=== PATIENT | male | born 1955 | race Caucasian/White ===

== ENCOUNTER 2016-12-31 20:12 | Inpatient (IN) | payer OTHER ==
[~2016-12-31] VITALS: Ht 180.3 cm; Wt 121.7 kg
--- NOTE | 2016-12-31 21:00 | REPUSA ---
CT of the head Clinical history: Headache. CVA. Technique: Multiple axial CT images were obtained through the head without administration of contrast . Findings: The ventricles and sulci are symmetric bilaterally. There is no evidence of acute hemorrhag e or infarct. There is no midline shift, mass effect, or extra-axial fluid collection. The osseous st ructures are unremarkable. The visualized paranasal sinuses and mastoid air cells are clear. Impression: Negative study.
[2016-12-31 21:10] LABS: BASO # 0.1 K/mm3 (0.0-0.2); BASO % 0.8 % (0.0-1.0); EOS # 0.2 K/mm3 (0.0-0.50); LARGE UNSTAINED CELL # 0.2 K/mm3 (0.0-0.4); LARGE UNSTAINED CELL % 2.1 % (0.0-4.0); LYMPH # 3.4 K/mm3 (1.5-4.5); LYMPH % 38.2 % (24.0-44.0); MEAN CORPUSCULAR HEMOGLOBIN 30.1 pg (27.0-33.0); MEAN CORPUSCULAR HGB CONC 35.8 g/dl (32.0-36.5); MEAN CORPUSCULAR VOLUME 83.9 fl (80.0-96.0); MONO # 0.5 K/mm3 (0.0-0.8); MONO % 5.3 % (0.0-5.0); NEUTROPHILS # 4.6 K/mm3 (1.8-7.7); NEUTROPHILS % 51.6 % (36.0-66.0); PLATELET COUNT, AUTOMATED 205 k/mm3 (150-450); RED CELL DISTRIBUTION WIDTH 13.6 % (11.5-14.5)
[2016-12-31] MEDS ORDERED: ASPIRIN 81 MG CHEW TABLET As Ordered ONE (21:15)
[2016-12-31 21:30] LABS: ANION GAP 9 MEQ/L (8-16); BLOOD UREA NITROGEN 20 MG/DL (7-18); CALCIUM LEVEL 9.3 MG/DL (8.8-10.2); CARBON DIOXIDE LEVEL 28 MEQ/L (21-32); CHLORIDE LEVEL 103 MEQ/L (98-107); CREATININE FOR GFR 0.99 MG/DL (0.70-1.30); GLOMERULAR FILTRATION RATE > 60.0 (>49); GLUCOSE, FASTING 153 MG/DL (80-110); POTASSIUM SERUM 3.4 MEQ/L (3.5-5.1); SODIUM LEVEL 140 MEQ/L (136-145)
[2016-12-31 21:35] LABS: INR 1.1
[2016-12-31] MEDS ORDERED: LOSA100T36 PO (22:34)
[2016-12-31] MEDS ORDERED: CHLO25TA PO (22:34)
[2016-12-31] MEDS ORDERED: VITMTA PO (22:34)
[2016-12-31] MEDS ORDERED: METF-414 PO (22:34)
[2016-12-31] MEDS ORDERED: ASPI81TA7 PO (22:34)
[2016-12-31] MEDS ORDERED: ACETAMINOPHEN TAB 650MG DOSE (2X325MG) PO PRN (22:45)
[2016-12-31] MEDS ORDERED: ONDANSETRON 4MG/2ML VIAL (J2405) IV PRN (22:45)
[2016-12-31 23:30] VITALS: BP 130/75
[2017-01-01] VITALS (7 sets, daily range): BP systolic 124–138; BP diastolic 78–93; PULSE 78–80
[2017-01-01] MEDS ORDERED: POTASSIUM CHLORIDE 10 MEQ SR TABLET PO ONE (00:30)
[2017-01-01] MEDS ORDERED: DEXTROSE 50% 50 ML SYRINGE IV PRN (01:45)
[2017-01-01] MEDS ORDERED: GLUCOSE 4 GM CHEW TABLET PO PRN (01:45)
[2017-01-01] MEDS ORDERED: GLUCAGON FOR INJ 1 MG VIAL (J1610) SC PRN (01:45)
--- NOTE | 2017-01-01 02:10 | REPUSA ---
CLINICAL HISTORY: CVA. TECHNIQUE: Three dimensional vlho-oz-zkzlox angiography is performed of the [place]. The violetta dy was performed without IV contrast agent. FINDINGS: The supraclinoid portions of the internal carotid arteries are of normal shape. The normal bifurcation is seen. The middle cerebral arteries are unremarkable in appearance. The posterior circu lation is visualized and shows no evidence of occlusion or aneurysm formation. The basilar tip is see n and shows no aneurysm formation. There is no evidence of beading to suggest vasculitis. IMPRESSION: MRA of the [place] is within normal limits. Thank you for your kind referral of this patient.
--- NOTE | 2017-01-01 02:20 | REPUSA ---
CLINICAL HISTORY: Suspected ischemia. TECHNIQUE: MRI of the brain was performed utilizing multiple sequences in axial, coronal and sagittal planes without IV contrast material. COMMENTS: There are 2 foci of restricted diffusion in the left temporal periventricular and subcortical white m atter with the largest measuring 5 mm. The sella and parasellar region are unremarkable in appearance. The corpus callosum and cerebellar tonsils are of normal configuration and position. There are no intra or extra-axial collections. There is no mass effect or midline shift. There is no evidence of hematoma formation. There is no hyd rocephalus. The visualized arterial structures demonstrate normal appearing flow voids. The seventh and eighth nerve bundles are visualized and are unremarkable in appearance. Several foci of T2/FLAIR hyperintensity are noted in the bilateral periventricular and subcortical wh ite matter compatible with mild chronic white matter ischemic changes. Generalized proportionate dilatation of ventricles and sulci is present compatible with age-appropria te parenchymal atrophy. IMPRESSION: 1. Two acute ischemic foci in the left temporal periventricular and subcortical white matter with the largest measuring 5 mm. 2. Generalized age-appropriate parenchymal atrophy. 3. Mild chronic white matter microvascular ischemic changes. Thank you for your kind referral of this patient.
[2017-01-01] MEDS ORDERED: POTASSIUM CHLORIDE 10 MEQ SR TABLET As Ordered ONE (02:22)
--- NOTE | 2017-01-01 05:40 | REPUSA ---
CLINICAL HISTORY: Cerebral ischemia. COMMENTS: Real time sonography with duplex doppler of the carotid arteries bilaterally was performed. Bilateral atheromatous plaques of the common carotid arteries extending to the proximal aspect of the internal and external carotid arteries. Antegrade flow in the vertebral arteries. IMPRESSION: Bilateral less than 50% stenosis of the takeoff of the internal carotid arteries. Thank you for your kind referral of this patient.
[2017-01-01 07:06] LABS: BASO # 0.1 K/mm3 (0.0-0.2); BASO % 0.9 % (0.0-1.0); EOS # 0.2 K/mm3 (0.0-0.50); EOS % 2.5 % (0.0-3.0); LARGE UNSTAINED CELL # 0.2 K/mm3 (0.0-0.4); LARGE UNSTAINED CELL % 1.8 % (0.0-4.0); LYMPH # 3.8 K/mm3 (1.5-4.5); LYMPH % 41.2 % (24.0-44.0); MEAN CORPUSCULAR HEMOGLOBIN 29.8 pg (27.0-33.0); MEAN CORPUSCULAR HGB CONC 34.9 g/dl (32.0-36.5); MEAN CORPUSCULAR VOLUME 85.4 fl (80.0-96.0); MONO # 0.4 K/mm3 (0.0-0.8); MONO % 4.9 % (0.0-5.0); NEUTROPHILS # 4.3 K/mm3 (1.8-7.7); NEUTROPHILS % 48.7 % (36.0-66.0); PLATELET COUNT, AUTOMATED 215 k/mm3 (150-450); RED CELL DISTRIBUTION WIDTH 13.9 % (11.5-14.5); WHITE BLOOD COUNT 8.8 K/mm3 (4.0-10.0)
[2017-01-01 07:21] LABS: ANION GAP 9 MEQ/L (8-16); BLOOD UREA NITROGEN 20 MG/DL (7-18); CALCIUM LEVEL 9.1 MG/DL (8.8-10.2); CARBON DIOXIDE LEVEL 28 MEQ/L (21-32); CHLORIDE LEVEL 105 MEQ/L (98-107); CHOLESTEROL LEVEL 160 MG/DL (<200); CREATININE FOR GFR 0.85 MG/DL (0.70-1.30); GLOMERULAR FILTRATION RATE > 60.0 (>49); GLUCOSE, FASTING 148 MG/DL (80-110); POTASSIUM SERUM 3.5 MEQ/L (3.5-5.1); SODIUM LEVEL 142 MEQ/L (136-145); TRIGLYCERIDES LEVEL 177 MG/DL (<150)
--- NOTE | 2017-01-01 07:51 | REP ---
Clinical: Cerebrovascular accident . Comparison: None . Findings: The mediastinum and cardiac silhouette are stable and within normal limits for portable technique. The lung norman are clear without acute consolidation, effusion, or pneumothorax. Skeletal structures are intact. Impression: Normal portable chest x-ray Signed by Bruno Wong MD 01/01/2017 07:43 A
[2017-01-01] MEDS ORDERED: CHLORTHALIDONE 25 MG TAB PO SCH (09:00)
[2017-01-01] MEDS ORDERED: LOSARTAN 50 MG TAB PO SCH (09:00)
[2017-01-01] MEDS ORDERED: ASPIRIN 325 MG TAB PO SCH (09:00)
--- NOTE | 2017-01-01 09:33 | HPE ---
DATE OF ADMISSION: 12/31/2016 PRIMARY CARE PHYSICIAN: Apryl Mathis MD CHIEF COMPLAINT: Slurring of speech, feeling off balance, and right hand numbness. HISTORY OF PRESENT ILLNESS: This is a 61-year-old male with a past medical history significant for hypertension, ulcers colitis, and oqv-irxixyp-itkeljhxs diabetes mellitus. He presented to the emergency department complaining of slurring of speech when he was at work. 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 It occurred approximately at 6:45 in the afternoon. He was in mid conversation when he noticed that he was slurring his S's and was talking in a different manner. This lasted for approximately 2-3 minutes. He asked a coworker about his speech 5 minutes after the incident, and his coworker said his speech sounded like normal. He drove home from work without any complications. He reports having dizzy spells for the last week. He felt like he was off balance during the day. He also reports symptoms of right hand numbness that had occurred since . These symptoms are resolved at this time. The patient denies any trauma to the head, loss of consciousness. He denies any headaches at this time. He has no changes in swallowing. The patient presented to the emergency department for assessment. Said that he does have a family history of his maternal grandfather having strokes in his mid 50s and 60s. In the emergency department, they started him on 324 mg of aspirin. They have been monitoring his vitals, which has been stable. Initial head CT was unremarkable for acute hemorrhage or infarct. PAST MEDICAL HISTORY: Hypertension, ulcers colitis - currently dormant, vuh-ldtevio-osbchqvym diabetes mellitus - well controlled. PAST SURGICAL HISTORY: Vasectomy. Colonoscopy - last one in November 2016. HOME MEDICATIONS: - metformin 500 mg daily - losartan 100 mg daily - chlorthalidone 25 mg daily - aspirin 81 mg daily - multivitamin ALLERGIES: NO KNOWN DRUG ALLERGIES. SOCIAL HISTORY: Patient lives at home with his and son. He has two cats. Currently smokes approximately 10 cigars a week. Has been doing this for 4-5 years. He quit cigarette smoking 20 years ago. Has an approximately 15 pack-year history of smoking. He is an occasional beer drinker. Denies any recreational drug use. FAMILY HISTORY: Maternal grandfather has a history of strokes in his 50s and 60s. The patient's father has a history of hypertension. REVIEW OF SYSTEMS: Constitutional: No unexplained weight loss, fatigue, fevers, chills. HEENT: No changes in vision, headaches, nasal congestion, or changes in hearing. Cardiovascular: Denies shortness of breath, chest pain, palpitations. Respiratory: Denies cough, shortness of breath, wheezing. Gastrointestinal: Denies any abdominal pain, nausea, vomiting, diarrhea, constipation. Denies hematochezia, melena. Genitourinary (): Denies any dysuria, hematuria. Musculoskeletal: Denies any joint pain or swelling. Integumentary: Denies any skin changes, rashes. Neurological: Admits to feeling off balance, right hand weakness, and slurring of speech, which have all resolved at this time. Denies loss of consciousness, numbness and tingling in the remainder his extremities, limb weakness. Endocrine: Admits to history of diabetes. Denies polydipsia, polyuria, polyphagia. Hematology: Denies abnormal blood loss, bruising. PHYSICAL EXAMINATION: Vital signs: Blood pressure is 118/70, pulse is 84, respirations 16, temperature is 97.6, oxygen saturation is 95% on room air. His weight is 119.75 kg. His height is 180 cm. General: He is lying on the hospital bed comfortable. He is calm and cooperative. He does not appear to be in acute distress. HEENT: His head is normocephalic, atraumatic. His extraocular movements are intact bilaterally. His pupils are equally round and reactive to light and accommodation. He has no facial asymmetry. He raises both eyebrows equally. No slurring of speech is apparent. His tongue is midline. There is no tonsillar erythema or exudates. His mucous membranes are moist. Cardiovascular: Regular rate and rhythm, no murmurs appreciated. Respiratory: His lungs are clear to auscultation bilaterally. No wheezing. Abdomen: Is soft, nontender, obese, nondistended. Normoactive bowel sounds are heard throughout. Extremities: No edema in the bilateral lower extremities. +2 pedal pulses and radial pulse. Musculoskeletal: 5/5 strength throughout. Has good range of motion in all extremities. Neurologic: Cranial nerves II-XII are grossly intact. He has clear speech. +2 reflexes patellar, Achilles. No sensory deficits throughout his body. Normal dkfrkc-ai-bxta, rapid alternating movements, jmpi-qa-[id number]. Skin: No rashes. Skin is warm, dry, pink. Psychiatric: He is alert and oriented to person, place, time and situation. He has normal mood. LABORATORY FINDINGS: Glucose 153, BUN 28, creatinine 0.99, sodium 140, potassium 3.4, chloride 103, carbon dioxide 20, anion gap 9, calcium level 9.3. WBC 9.0, hemoglobin 15.1, hematocrit 42.0, platelet count is 205. His PTT is 27.2. PT is 14.3, INR 1.1. IMAGING STUDIES: A head CT was completed on 12/31/2016. No evidence of acute hemorrhage or infarct. Was noted to be a negative study. ASSESSMENT AND PLAN: This is a 61-year-old male with stroke symptoms. We will be admitting the patient for further evaluation and stabilization. At this time, his symptoms have resolved. 1. Acute left temporal CVA: Pt will be admitted for CVA workup including an echocardiogram and carotid dopplers to rule out carotid stenosis, hypercoagulable state workup, and vasculitis labs will be added. For now, his asa will be changed from 81mg to 325 mg daily, Plavix 75mg daily, and neurologist, Dr. Vera, has been consulted for further recommendations. Start on statins, and consult physical therapist , tobacco cessation counseling as he still uses cigars, with prior history of smoking. neurochecks q4hrs. monitor for new neurological symptoms. 2. DM2. consistent carbohydrates diet, check A1c, and sliding scale for now. 3. Hypokalemia, supplement with kdur orally. 4. HTN. continue on diuretic and losartan, and monitor creatinine and renal function. 5. Active Tobacco use, quit cigarette smoking, but currently still using 10 cigars daily. tobacco cessation counseling. 6. Ulcerative colitis, stable. no acute symptoms DVT prophylaxis.on aspirin and plavix. compression stockings. My preceptor for this patient encounter was Sunshine Diaz MD. The preceptor was physically present in the building during the encounter and was fully available. As needed, all aspects of the patient interview, examination, medical decision making process, and medical care plan development were reviewed and approved by the preceptor. The preceptor is aware and concurs with the plan as stated in the body of this note and will attest to such by his/her co-signature. JOSE
[2017-01-01] MEDS ORDERED: HumaLOG INSULIN (NovoLOG) PER UNIT As Ordered ONE (09:52)
[2017-01-01] MEDS: HumaLOG INSULIN (NovoLOG) PER UNIT SC SCH ×4 (10:03→21:00)
--- NOTE | 2017-01-01 10:03 | ECGEPIP ---
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
[2017-01-01] MEDS: ATORVASTATIN 20 MG TAB PO SCH (10:04)
[2017-01-01] MEDS: ENOXAPARIN 40 MG/0.4 ML SYRINGE (J1650) SC SCH (10:06)
--- NOTE | 2017-01-01 13:06 | EDDOCDS ---
Nurse's Notes [facility] Name: Alec Staples Age: 61 yrs Sex: Male : 1955 Arrival Date: 12/31/2016 Time: 20:12 Bed Admit Hold Private MD: Apryl Mathis A Diagnosis: Transient cerebral ischemic attack, unspecified Presentation: 12/31 20:25 Presenting complaint: Patient states: that tonight at work he experienced some slurred ms18 speech. Pt states that over the past few days he has experienced dizzy spells and some numbness in his R hand. Pt has a history of strokes in his family. The last date and time the patient was known to be well was was at 18:30 on December 31, 2016. No acute neurological deficit is noted. Pre-hospital glucose is not applicable to this patient. Adult Sepsis Screening: The patient does not have new or worsening altered mentation. Patient's respiratory rate is less than 22. Systolic blood pressure is greater than 100. Patient has a qSOFA score of 0- Negative Sepsis Screen. Suicide/Homicide risk assessment- the patient denies having any suicidal and/or homicidal ideations and does not present with any other emotional, behavioral or mental health complaints. Status: retired . Transition of care: patient was not received from another setting of care. Red Flag criteria, patient assessed and taken directly to a bed. 20:25 Acuity: TEENA Level 3 ms18 20:25 Method Of Arrival: Walkin/Carried/Asstd ms18 Triage Assessment: 20:31 The onset of the patients symptoms was less than three hours ago. General: Appears in ms18 no apparent distress, comfortable, obese, well nourished, well groomed, Behavior is appropriate for age, cooperative, pleasant. Pain: Denies pain. HIV screening NA for this visit Offered previously. Neurological: Level of Consciousness is awake, alert, obeys commands, Oriented to person, place, time, Reports no additional symptoms. Respiratory: Airway is patent Respiratory effort is even, unlabored. Derm: Skin is pink, warm & dry. normal. Historical: - Allergies: no known allergies; - Home Meds: 1. metformin 500 mg Oral Tb24 4 tabs once daily (Last dose: 12/31/2016 16:30) 2. losartan 100 mg oral tab 1 tab once daily (Last dose: 12/31/2016 08:00) 3. chlorthalidone 25 mg Oral tab 1 tab once daily 4. aspirin 81 mg Oral tab 1 tab once daily 5. Centrum Silver oral tab daily - PMHx: Hypertension; Ulcerative Colitis; Diabetes - NIDDM: controlled; - PSHx: Vasectomy; Colonoscopy; - Social history: Smoking status: Cigars No barriers to communication noted, The patient speaks fluent Macedonian. - : The pt / caregiver states he / she is not on anticoagulants. Home medication list is obtained from the patient. - Exposure Risk Screening:: None identified. Assessment: 21:12 General: Appears in no apparent distress, comfortable, Behavior is appropriate for age, nn1 cooperative. Pain: Denies pain. Neurological: Level of Consciousness is awake, alert, obeys commands, Oriented to person, place, time, Repossession Agent are equal bilaterally Moves all extremities. Speech is normal, Facial symmetry appears normal, Patient reports about 3 minutes of slurred speech earlier in the day, states he felt like his mouth was drooping to the left. No droop noted at this time. Patient states over the last 10 days he has had 1 episode of dizziness and 1 episode of numbness in right hand.. Reports no additional symptoms. Cardiovascular: Capillary refill < 3 seconds Chest pain is denied. Respiratory: Airway is patent Respiratory effort is even, unlabored, Respiratory pattern is regular, symmetrical, Breath sounds are clear bilaterally. Derm: Skin is pink, warm & dry. Musculoskeletal: No deficits noted. 22:20 Reassessment: Patient appears in no apparent distress at this time. Neurological: Level nn1 of Consciousness is awake, alert, obeys commands, Oriented to person, place, time, Repossession Agent are equal bilaterally Moves all extremities. Speech is normal, Facial symmetry appears normal, No changes in neuro status . Derm: Skin is pink, warm & dry. 23:43 General: Appears in no apparent distress, comfortable, Behavior is appropriate for age, nn1 cooperative. General: Report given to hCu Quach RN . Pain: Denies pain. Neurological: Level of Consciousness is awake, alert, obeys commands, Oriented to person, place, time, Repossession Agent are equal bilaterally Moves all extremities. Speech is normal, Facial symmetry appears normal. Respiratory: Airway is patent Respiratory effort is even, unlabored, Respiratory pattern is regular, symmetrical. Derm: Skin is pink, warm & dry. 01/01 07:43 General: monitor is sr with rate of 82. [facility] Vital Signs: 12/31 20:14 BP 159 / 101; Pulse 98; Resp 16; Temp 97.6(O); Pulse Ox 97% on R/A; Weight 119.75 kg lr2 (R); Height 5 ft. 11 in. (180.34 cm); Pain 0/10; 20:21 BP 145 / 87 (auto/); ms18 20:23 Pulse 96 MON; Pulse Ox 96% ; ms18 20:36 BP 137 / 81 (auto/); nn1 20:36 Pulse 86 MON; Pulse Ox 96% ; nn1 20:51 BP 142 / 93 (auto/); nn1 20:51 Pulse 92 MON; Pulse Ox 97% ; nn1 21:00 BP 138 / 88 LA Supine (man/lg); rs6 21:05 Pulse 88 MON; Pulse Ox 96% ; nn1 21:06 BP 122 / 80 (auto/); nn1 21:20 Pulse 92 MON; Pulse Ox 97% ; nn1 21:21 BP 141 / 77 (auto/); nn1 21:35 Pulse 92 MON; Pulse Ox 97% ; nn1 21:36 BP 138 / 75 (auto/); nn1 21:51 BP 125 / 64 (auto/); nn1 21:51 Pulse 88 MON; Pulse Ox 95% ; nn1 22:05 Pulse 86 MON; Pulse Ox 97% ; nn1 22:06 BP 132 / 72 (auto/); nn1 22:20 Pulse 82 MON; Pulse Ox 96% ; nn1 22:21 BP 117 / 69 (auto/); nn1 22:21 Pulse 82 MON; Pulse Ox 95% ; nn1 22:36 BP 122 / 72 (auto/); nn1 22:36 Pulse 82 MON; Pulse Ox 95% ; nn1 22:51 BP 119 / 71 (auto/); nn1 22:51 Pulse 86 MON; Pulse Ox 95% ; nn1 23:06 BP 118 / 70 (auto/); nn1 23:06 Pulse 84 MON; Pulse Ox 95% ; nn1 20:14 Body Mass Index 36.82 (119.75 kg, 180.34 cm) [facility] Vitals: 20:31 Glucose Measurement will do with blood work. Log In Time: December 31, 2016 at 20:12. ms18 ED Course: 20:14 Patient visited by Lisette Stuart. lr2 20:14 Apryl Mathis is Private Physician. lr2 20:14 Patient moved to Waiting lr2 20:19 Jojo Moore,RN is Primary Nurse. lr2 20:19 Patient moved to 11 lr2 20:25 Patient visited by Diana Cooley RN. ms18 20:27 Triage Initiated ms18 20:[address] benjamin 20:43 Pt greeted and oriented to ED. Patient advised of names of staff involved in care, rs6 location of call huizar, wait times and NPO status. Accompanied by Significant Other, Patient has correct armband on for positive identification. Placed in gown. Bed in low position. Call light in reach. Side rails up X 1. groundwater monitoring technician on. Pulse ox on. NIBP on. 20:43 EKG done. (by ED staff). Reviewed by Salbador CESAR. rs6 20:44 Patient visited by Kelsea Colón PCA. rs6 20:56 Salbador Santana FNP is PHCP. ke 20:56 Patient visited by Salbador Santana FNP. ke 20:56 Patient visited by Salbador Santana FNP. ke 21:00 Patient visited by Kelsea Colón PCA. rs6 21:00 Patient moved to 11 rs6 21:08 CT Head Without Contrast Returned. EDMS 21:14 Patient visited by Salbador Santana FNP. ke 21:14 Inserted saline lock: 20 gauge in left and blood collected. The patient tolerated the nn1 procedure well. left wrist 20g. 21:44 Patient visited by Salbador Santana FNP. ke 22:18 Patient visited by Salbador Santana FNP. ke 22:32 Sunshine Diaz is Hospitalizing Provider. ke 23:20 Patient moved to 20 sls1 23:26 Patient moved to Admit Hold sls1 01/01 00:54 [facility] Payment Agreement was scanned into [employer] and attached to record. hs2 01:50 Primary Nurse role handed off by Jojo Moore,NIURKA rs6 02:20 MRA BRAIN W/O CONTRAST Returned. EDMS 02:57 MRI Brain without Contrast Returned. EDMS 03:13 Patient moved to Ultrasound en 03:54 Patient moved to 20 en 06:05 Duplex,carotid (complete) Returned. EDMS 06:52 Patient moved to Admit Hold sls1 08:03 Chest, 1 View Returned. EDMS 10:06 ELECTROCARDIOGRAM ADULT Returned. EDMS Administered Medications: 12/31 21:24 Drug: Aspirin 324 mg [aspirin 81 mg chewable tablet (4 tabs)] Route: PO; nn1 Point of Care Testing: Blood Glucose: 21:15 Blood Glucose: 170 mg/dL; nn1 Ranges: Order Results: Lab Order: Basic Metabolic Profile; SPEC'M 12/31/16 21:01 Test: GLUCOSE, FASTING; Value: 153; Range: 80-110; Abnormal: Above high normal; Units: MG/DL; Status: F Test: BLOOD UREA NITROGEN; Value: 20; Range: 7-18; Abnormal: Above high normal; Units: MG/DL; Status: F Test: CREATININE FOR GFR; Value: 0.99; Range: 0.70-1.30; Units: MG/DL; Status: F Test: GLOMERULAR FILTRATION RATE; Value: > 60.0; Range: >49; Status: F Test: SODIUM LEVEL; Value: 140; Range: 136-145; Units: MEQ/L; Status: F Test: POTASSIUM SERUM; Value: 3.4; Range: 3.5-5.1; Abnormal: Below low normal; Units: MEQ/L; Status: F Test: CHLORIDE LEVEL; Value: 103; Range: 98-107; Units: MEQ/L; Status: F Test: CARBON DIOXIDE LEVEL; Value: 28; Range: 21-32; Units: MEQ/L; Status: F Test: ANION GAP; Value: 9; Range: 8-16; Units: MEQ/L; Status: F Test: CALCIUM LEVEL; Value: 9.3; Range: 8.8-10.2; Units: MG/DL; Status: F Test Note: ; Units are mL/min/1.73 m2 Chronic Kidney Disease Staging per NKF: Stage I & II GFR >=60 Normal to Mildly Decreased Stage III GFR 30-59 Moderately Decreased Stage IV GFR 15-29 Severely Decreased Stage V GFR <15 Very Little GFR Left ESRD GFR <15 on WEATHERIZATION COORDINATOR Lab Order: CBC with Diff; SPEC'M 12/31/16 21:01 Test: WHITE BLOOD COUNT; Value: 9.0; Range: 4.0-10.0; Units: K/mm3; Status: F Test: RED BLOOD COUNT; Value: 5.01; Range: 4.30-6.10; Units: M/mm3; Status: F Test: HEMOGLOBIN; Value: 15.1; Range: 14.0-18.0; Units: g/dl; Status: F Test: HEMATOCRIT; Value: 42.0; Range: 42.0-52.0; Units: %; Status: F Test: MEAN CORPUSCULAR VOLUME; Value: 83.9; Range: 80.0-96.0; Units: fl; Status: F Test: MEAN CORPUSCULAR HEMOGLOBIN; Value: 30.1; Range: 27.0-33.0; Units: pg; Status: F Test: MEAN CORPUSCULAR HGB CONC; Value: 35.8; Range: 32.0-36.5; Units: g/dl; Status: F Test: RED CELL DISTRIBUTION WIDTH; Value: 13.6; Range: 11.5-14.5; Units: %; Status: F Test: PLATELET COUNT, AUTOMATED; Value: 205; Range: 150-450; Units: k/mm3; Status: F Test: NEUTROPHILS %; Value: 51.6; Range: 36.0-66.0; Units: %; Status: F Test: LYMPH %; Value: 38.2; Range: 24.0-44.0; Units: %; Status: F Test: MONO %; Value: 5.3; Range: 0.0-5.0; Abnormal: Above high normal; Units: %; Status: F Test: EOS %; Value: 2.0; Range: 0.0-3.0; Units: %; Status: F Test: BASO %; Value: 0.8; Range: 0.0-1.0; Units: %; Status: F Test: LARGE UNSTAINED CELL %; Value: 2.1; Range: 0.0-4.0; Units: %; Status: F Test: NEUTROPHILS #; Value: 4.6; Range: 1.8-7.7; Units: K/mm3; Status: F Test: LYMPH #; Value: 3.4; Range: 1.5-4.5; Units: K/mm3; Status: F Test: MONO #; Value: 0.5; Range: 0.0-0.8; Units: K/mm3; Status: F Test: EOS #; Value: 0.2; Range: 0.0-0.50; Units: K/mm3; Status: F Test: BASO #; Value: 0.1; Range: 0.0-0.2; Units: K/mm3; Status: F Test: LARGE UNSTAINED CELL #; Value: 0.2; Range: 0.0-0.4; Units: K/mm3; Status: F Lab Order: Partial Thromboplastin Time; 12/31/16 21:01 Test: PARTIAL THROMBOPLASTIN TIME; Value: 27.2; Range: 26.6-37.1; Units: SECONDS; Status: F Lab Order: Prothrombin Time Profile\E\INR; 12/31/16 21:01 Test: PROTHROMBIN TIME; Value: 14.3; Range: 12.3-14.5; Units: SECONDS; Status: F Test: INR; Value: 1.10; Status: F Test Note: ; THERAPUTIC HUMAN INR VALUES INDICATIONS NORMAL RANGES PROPHYLAXIS/TREATMENT OF: VENOUS THROMBOSIS 2.0-3.0 PULMONARY EMBOLISM 2.0-3.0 PREVENTION OF SYSTEMIC EMBOLISM FROM: TISSUE HEART VALVES 2.0-3.0 ACUTE MYOCARDIAL INFARCTION 2.0-3.0 VALVULAR HEART DISEASE 2.0-3.0 ATRIAL FIBRILLATION 2.0-3.0 MECHANICAL VALVES(HIGH RISK) 2.5-3.5 RECURRENT MYOCARDIAL INFARCTION 2.5-3.5 Lab Order: Type & Screen; 12/31/16 21:01 Test: BLOOD TYPE; Value: O POS; Status: F Test: AB SCREEN (INDIRECT HUSAM)VIS; Value: NEGATIVE; Status: F Lab Order: Fingerstick Blood Sugar; 12/31/16 20:53 Test: BEDSIDE GLUCOSE; Value: 170; Range: 80-115; Abnormal: Above high normal; Units: MG/DL; Status: F Test Note: ; RN Notified Doctor Notified Lab Order: CARDIAC RISK PROFILE; 01/01/17 06:31 Test: TRIGLYCERIDES LEVEL; Value: 177; Range: <150; Abnormal: Above high normal; Units: MG/DL; Status: F Test: CHOLESTEROL LEVEL; Value: 160; Range: <200; Units: MG/DL; Status: F Test: HDL CHOLESTEROL; Value: 31; Range: >40; Abnormal: Below low normal; Units: MG/DL; Status: F Test: LDL CHOLESTEROL; Value: 93.6; Range: <100; Units: MG/DL; Status: F Test: NON-HDL-C; Value: 129; Units: MG/DL; Status: F Test: CHOLESTEROL RISK RATIO; Value: 5.161; Range: <5; Abnormal: Above high normal; Status: F Lab Order: CBC WITH DIFFERENTIAL; 01/01/17 06:44 Test: WHITE BLOOD COUNT; Value: 8.8; Range: 4.0-10.0; Units: K/mm3; Status: F Test: RED BLOOD COUNT; Value: 4.84; Range: 4.30-6.10; Units: M/mm3; Status: F Test: HEMOGLOBIN; Value: 14.4; Range: 14.0-18.0; Units: g/dl; Status: F Test: HEMATOCRIT; Value: 41.3; Range: 42.0-52.0; Abnormal: Below low normal; Units: %; Status: F Test: MEAN CORPUSCULAR VOLUME; Value: 85.4; Range: 80.0-96.0; Units: fl; Status: F Test: MEAN CORPUSCULAR HEMOGLOBIN; Value: 29.8; Range: 27.0-33.0; Units: pg; Status: F Test: MEAN CORPUSCULAR HGB CONC; Value: 34.9; Range: 32.0-36.5; Units: g/dl; Status: F Test: RED CELL DISTRIBUTION WIDTH; Value: 13.9; Range: 11.5-14.5; Units: %; Status: F Test: PLATELET COUNT, AUTOMATED; Value: 215; Range: 150-450; Units: k/mm3; Status: F Test: NEUTROPHILS %; Value: 48.7; Range: 36.0-66.0; Units: %; Status: F Test: LYMPH %; Value: 41.2; Range: 24.0-44.0; Units: %; Status: F Test: MONO %; Value: 4.9; Range: 0.0-5.0; Units: %; Status: F Test: EOS %; Value: 2.5; Range: 0.0-3.0; Units: %; Status: F Test: BASO %; Value: 0.9; Range: 0.0-1.0; Units: %; Status: F Test: LARGE UNSTAINED CELL %; Value: 1.8; Range: 0.0-4.0; Units: %; Status: F Test: NEUTROPHILS #; Value: 4.3; Range: 1.8-7.7; Units: K/mm3; Status: F Test: LYMPH #; Value: 3.8; Range: 1.5-4.5; Units: K/mm3; Status: F Test: MONO #; Value: 0.4; Range: 0.0-0.8; Units: K/mm3; Status: F Test: EOS #; Value: 0.2; Range: 0.0-0.50; Units: K/mm3; Status: F Test: BASO #; Value: 0.1; Range: 0.0-0.2; Units: K/mm3; Status: F Test: LARGE UNSTAINED CELL #; Value: 0.2; Range: 0.0-0.4; Units: K/mm3; Status: F Lab Order: BASIC METABOLIC PROFILE; [facility]' 01/01/17 06:31 Test: GLUCOSE, FASTING; Value: 148; Range: 80-110; Abnormal: Above high normal; Units: MG/DL; Status: F Test: BLOOD UREA NITROGEN; Value: 20; Range: 7-18; Abnormal: Above high normal; Units: MG/DL; Status: F Test: CREATININE FOR GFR; Value: 0.85; Range: 0.70-1.30; Units: MG/DL; Status: F Test: GLOMERULAR FILTRATION RATE; Value: > 60.0; Range: >49; Status: F Test: SODIUM LEVEL; Value: 142; Range: 136-145; Units: MEQ/L; Status: F Test: POTASSIUM SERUM; Value: 3.5; Range: 3.5-5.1; Units: MEQ/L; Status: F Test: CHLORIDE LEVEL; Value: 105; Range: 98-107; Units: MEQ/L; Status: F Test: CARBON DIOXIDE LEVEL; Value: 28; Range: 21-32; Units: MEQ/L; Status: F Test: ANION GAP; Value: 9; Range: 8-16; Units: MEQ/L; Status: F Test: CALCIUM LEVEL; Value: 9.1; Range: 8.8-10.2; Units: MG/DL; Status: F Test Note: ; Units are mL/min/1.73 m2 Chronic Kidney Disease Staging per NKF: Stage I & II GFR >=60 Normal to Mildly Decreased Stage III GFR 30-59 Moderately Decreased Stage IV GFR 15-29 Severely Decreased Stage V GFR <15 Very Little GFR Left ESRD GFR <15 on WEATHERIZATION COORDINATOR Lab Order: THYROID STIMULATING HORMONE; SPEC'M 01/01/17 06:31 Test: THYROID STIMULATING HORMONE; Value: 2.050; Range: 0.358-3.740; Units: uIU/ML; Status: F Radiology Order: CT Head Without Contrast Test: CT Head Without Contrast REASON FOR EXAMINATION: CVA <4.5hrs; ; CT of the head; Clinical history: Headache. CVA.; Technique: Multiple axial CT images were obtained through the head without administration of contrast; .; Findings: The ventricles and sulci are symmetric bilaterally. There is no evidence of acute hemorrhag; e or infarct. There is no midline shift, mass effect, or extra-axial fluid collection. The osseous st; ructures are unremarkable. The visualized paranasal sinuses and mastoid air cells are clear.; Impression: Negative study.; ; Radiology Order: Chest, 1 View Test: Chest, 1 View REASON FOR EXAMINATION: CVA <4.5hrs; Clinical: Cerebrovascular accident .; ; Comparison: None .; ; Findings:; The mediastinum and cardiac silhouette are stable and within normal limits for; portable technique. The lung norman are clear without acute consolidation,; effusion, or pneumothorax. 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: rs; : 1955 Requested By: SINCERE Simmons; Order Number: [id number] Reading MD: Jaclyn Muniz; Measurements; Intervals [place]; Rate: 83 P: 32; UT: 154 QRS: 26; QRSD: 92 T: 11; QT: 377; QTc: 445; Interpretive Statements; SINUS RHYTHM; NSTTW ABNORMALITY; NO PRIOR FOR COMPARISON; Electronically Signed On 01-01-2017 10:03:21 EST by Jaclyn Muniz; Radiology Order: MRI Brain without Contrast Test: MRI Brain without Contrast REASON FOR EXAMINATION: slurred speech-page w result; ; CLINICAL HISTORY: Suspected ischemia.; TECHNIQUE: MRI of the brain was performed utilizing multiple sequences in axial, coronal and sagittal; planes without IV contrast material.; COMMENTS:; There are 2 foci of restricted diffusion in the left temporal periventricular and subcortical white m; atter with the largest measuring 5 mm.; The sella and parasellar region are unremarkable in appearance.; The corpus callosum and cerebellar tonsils are of normal configuration and position.; There are no intra or extra-axial collections.; There is no mass effect or midline shift. There is no evidence of hematoma formation. There is no hyd; rocephalus.; The visualized arterial structures demonstrate normal appearing flow voids.; The seventh and eighth nerve bundles are visualized and are unremarkable in appearance.; Several foci of T2/FLAIR hyperintensity are noted in the bilateral periventricular and subcortical wh; ite matter compatible with mild chronic white matter ischemic changes.; Generalized proportionate dilatation of ventricles and sulci is present compatible with age-appropria; te parenchymal atrophy.; IMPRESSION:; 1. Two acute ischemic foci in the left temporal periventricular and subcortical white matter with the; largest measuring 5 mm.; 2. Generalized age-appropriate parenchymal atrophy.; 3. Mild chronic white matter microvascular ischemic changes.; Thank you for your kind referral of this patient.; ; ; Radiology Order: MRA BRAIN W/O CONTRAST Test: MRA BRAIN W/O CONTRAST REASON FOR EXAMINATION: slurred speech-page md castañeda result; ; CLINICAL HISTORY: CVA.; TECHNIQUE: Three dimensional [id number] angiography is performed of the [place]. The [place]; dy was performed without IV contrast agent.; FINDINGS: The supraclinoid portions of the internal carotid arteries are of normal shape. The normal; bifurcation is seen. The middle cerebral arteries are unremarkable in appearance. The posterior circu; lation is visualized and shows no evidence of occlusion or aneurysm formation. The basilar tip is see; n and shows no aneurysm formation. There is no evidence of beading to suggest vasculitis.; IMPRESSION:; MRA of the [place] is within normal limits.; Thank you for your kind referral of this patient.; ; Radiology Order: Duplex,carotid (complete) Test: Duplex,carotid (complete) REASON FOR EXAMINATION: CVA; ; CLINICAL HISTORY: Cerebral ischemia.; COMMENTS:; Real time sonography with duplex doppler of the carotid arteries bilaterally was performed.; Bilateral atheromatous plaques of the common carotid arteries extending to the proximal aspect of the; internal and external carotid arteries.; Antegrade flow in the vertebral arteries.; IMPRESSION:; Bilateral less than 50% stenosis of the takeoff of the internal carotid arteries.; Thank you for your kind referral of this patient.; ; Outcome: 22:33 Decision to Hospitalize by Provider. ke 01/01 13:05 Patient left the ED. ttb Signatures: Dispatcher [employer] EDMS Orlando Conway,RN RN Evans Kraft Karl, FLORAL ARTIST FLORAL ARTIST Arabella Morrison RN RN sls1 Gaby Hawkins RN RN ttb Diana Cooley RN RN ms18 Kelsea Colón, LULU CERTIFIED PROSTHETIST rs6 Alma Ba RN RN nn1 Marilia Mendez Hillary, Reg Reg hs2 Lisette Stuart lr2 MTDD
--- NOTE | 2017-01-01 13:06 | EDDOCDS ---
Physician Documentation [facility] Name: Jeff Lazcano Age: 61 yrs Sex: Male : 1955 Arrival Date: 12/31/2016 Time: 20:12 Bed Admit Hold Private MD: Apryl Mathis A Disposition: 12/31/16 22:33 Hospitalization ordered by Sunshine Diaz for Inpatient Admission. Preliminary diagnosis is Transient cerebral ischemic attack, unspecified. - Bed requested for PCU. - Status is Inpatient Admission. ttb - Condition is Stable. - Problem is an ongoing problem. - Symptoms are unchanged. Historical: - Allergies: no known allergies; - Home Meds: 1. metformin 500 mg Oral Tb24 4 tabs once daily (Last dose: 12/31/2016 16:30) 2. losartan 100 mg oral tab 1 tab once daily (Last dose: 12/31/2016 08:00) 3. chlorthalidone 25 mg Oral tab 1 tab once daily 4. aspirin 81 mg Oral tab 1 tab once daily 5. Centrum Silver oral tab daily - PMHx: Hypertension; Ulcerative Colitis; Diabetes - NIDDM: controlled; - PSHx: Vasectomy; Colonoscopy; - Social history: Smoking status: Cigars No barriers to communication noted, The patient speaks fluent Indian. - : The pt / caregiver states he / she is not on anticoagulants. Home medication list is obtained from the patient. - Exposure Risk Screening:: None identified. Vital Signs: 12/31 20:14 BP 159 / 101; Pulse 98; Resp 16; Temp 97.6(O); Pulse Ox 97% on R/A; Weight 119.75 kg / lr2 264 lbs (R); Height 5 ft. 11 in. (180.34 cm); Pain 0/10; 20:21 BP 145 / 87 (auto/); ms18 20:23 Pulse 96 MON; Pulse Ox 96% ; ms18 20:36 BP 137 / 81 (auto/); nn1 20:36 Pulse 86 MON; Pulse Ox 96% ; nn1 20:51 BP 142 / 93 (auto/); nn1 20:51 Pulse 92 MON; Pulse Ox 97% ; nn1 21:00 BP 138 / 88 LA Supine (man/lg); rs6 21:05 Pulse 88 MON; Pulse Ox 96% ; nn1 21:06 BP 122 / 80 (auto/); nn1 21:20 Pulse 92 MON; Pulse Ox 97% ; nn1 21:21 BP 141 / 77 (auto/); nn1 21:35 Pulse 92 MON; Pulse Ox 97% ; nn1 21:36 BP 138 / 75 (auto/); nn1 21:51 BP 125 / 64 (auto/); nn1 21:51 Pulse 88 MON; Pulse Ox 95% ; nn1 22:05 Pulse 86 MON; Pulse Ox 97% ; nn1 22:06 BP 132 / 72 (auto/); nn1 22:20 Pulse 82 MON; Pulse Ox 96% ; nn1 22:21 BP 117 / 69 (auto/); nn1 22:21 Pulse 82 MON; Pulse Ox 95% ; nn1 22:36 BP 122 / 72 (auto/); nn1 22:36 Pulse 82 MON; Pulse Ox 95% ; nn1 22:51 BP 119 / 71 (auto/); nn1 22:51 Pulse 86 MON; Pulse Ox 95% ; nn1 23:06 BP 118 / 70 (auto/); nn1 23:06 Pulse 84 MON; Pulse Ox 95% ; nn1 20:14 Body Mass Index 36.82 (119.75 kg, 180.34 cm) lr2 MDM: 20:30 RN interventions must not delay CT ordered. br1 20:30 Rehabilitation Inspector/Pulse Ox/q 15 min VS ordered. br1 20:30 Accucheck ordered. br1 20:30 IV Saline Lock ordered. br1 20:31 Neuro VS q 15 Minutes ordered. br1 20:31 Rhythm Strip to chart ordered. br1 20:31 Misc. Nursing Order ordered. br1 20:32 Basic Metabolic Profile Ordered. EDMS 20:32 CBC with Diff Ordered. EDMS 20:32 Partial Thromboplastin Time Ordered. EDMS 20:32 Prothrombin Time Profile\E\INR Ordered. EDMS 20:33 Chest, 1 View Ordered. EDMS 20:33 Type & Screen Ordered. EDMS 20:33 CT Head Without Contrast Ordered. EDMS 20:33 ECG WITH READING ER PHYS+CARDIAG ordered. EDMS 21:04 Aspirin 324 mg PO once ordered. ke 21:10 Fingerstick Blood Sugar Ordered. EDMS 22:06 Basic Metabolic Profile Reviewed. ke 22:06 CBC with Diff Reviewed. ke 22:06 Fingerstick Blood Sugar Reviewed. ke 22:06 Partial Thromboplastin Time Reviewed. ke 22:06 Prothrombin Time Profile\E\INR Reviewed. ke 22:06 Type & Screen Reviewed. ke 22:06 CT Head Without Contrast Reviewed. ke 22:20 BED REQUEST+ADM ordered. EDMS 22:42 NO ADDED SALT DIET ordered. EDMS 22:42 CARDIAC RISK PROFILE Ordered. EDMS 22:42 CBC WITH DIFFERENTIAL Ordered. EDMS 22:43 BASIC METABOLIC PROFILE Ordered. EDMS 22:43 THYROID STIMULATING HORMONE Ordered. EDMS 22:43 PHYSICAL THERAPY EVAL & TREAT ordered. EDMS 22:44 Admission / Observation Status ordered. EDMS 23:31 Financial registration complete. hs2 01/01 00:54 [facility] [place] Payment Agreement was scanned into [employer] and attached to record. hs2 01:16 MRI Brain without Contrast Ordered. EDMS 01:23 MRA BRAIN W/O CONTRAST Ordered. EDMS 03:03 ECHOCARD,DOPPLER/COLOR FLOW ordered. EDMS 03:04 Duplex,carotid (complete) Ordered. EDMS 03:06 ANTINUCLEAR ANTIBODIES Ordered. EDMS 03:06 ANTI-CARDIOLIPIN ANTIBODIES Ordered. EDMS 03:06 PROTEIN C ANTIGEN Ordered. EDMS 03:06 ANTI THROMBIN 3 PANEL (AG/AC) Ordered. EDMS 03:06 HOMOCYSTEINE Ordered. EDMS 06:44 FACTOR II PROTHROMBIN GENE AN Ordered. EDMS 06:44 FACTOR V LEIDEN Ordered. EDMS Point of Care Testing: Blood Glucose: 12/31 21:15 Blood Glucose: 170 mg/dL; nn1 Ranges: Administered Medications: 21:24 Drug: Aspirin 324 mg [aspirin 81 mg chewable tablet (4 tabs)] Route: PO; nn1 Signatures: Dispatcher [employer] EDWV Salbador Santana, FIRER GLOST KILN FIRER GLOST KILN Angel Rouse MD MD br1 Gaby Hawkins RN RN ttb Diana Cooley RN RN [id number] Liane Wilkerson RN RN sls2 Bethanie Hurley, Reg Reg hs2 Alma Ba RN nn1 The chart was reviewed and I authenticate all verbal orders and agree with the evaluation and treatment provided.Corrections: (The following items were deleted from the chart) 01/01 01:16 12/31 22:39 MRI Brain W/O FOLL BY WITH ordered. EDMS EDMS 01/01 01:23 12/31 22:39 MRA BRAIN WITH CONTRAST ordered. EDMS EDMS 01/01 06:44 03:06 FACTOR V LEIDEN ordered. EDMS EDMS 03:06 FACTOR II PROTHROMBIN GENE AN ordered. EDMS EDMS Attachments: 00:54 [facility] Payment Agreement hs2 [facility]
[2017-01-02] VITALS (8 sets, daily range): BP systolic 120–156; BP diastolic 83–100
[2017-01-02] MEDS ORDERED: SLF 3 ML SYR IV PRN (03:00)
[2017-01-02] MEDS: SLF 3 ML SYR IV SCH ×3 (06:00→22:00)
--- NOTE | 2017-01-02 07:33 | CR ---
DATE OF CONSULTATION: 01/01/2017 REFERRING PHYSICIAN: Sunshine Diaz MD REASON FOR CONSULTATION: Slurred speech and transient ischemic attack. HISTORY OF PRESENT ILLNESS: Jeff Lazcano is a 61-year-old man with history of hypertension, diabetes who had three episodes in the last 12 days. In one episode he was standing next to a counter and suddenly felt lightheaded. He had two other episodes when his right hand became numb for two minutes. On the day of admission around 06:45 p.m. he was talking to someone and suddenly he started slurring his words and felt that he was talking in a different manner and needed to talk from the left side of his mouth. This lasted for 2-3 minutes and then improved. He denies any headaches. He denies any neck or back pain. He denies any falls, loss of consciousness or head injuries. He has history of obstructive sleep apnea syndrome but does not use a C-PAP. PAST MEDICAL HISTORY: 1. Hypertension. 2. Type 2 diabetes. 3. Vasectomy. 4. Colonoscopy. HOME MEDICATIONS: - metformin 5 mg by mouth daily - losartan 1 mg by mouth daily - chlorthalidone 25 mg by mouth daily - aspirin 81 mg by mouth daily - multivitamin 1 tablet by mouth daily ALLERGIES: NO KNOWN DRUG ALLERGIES. SOCIAL HISTORY: He lives at home with his and son. He smokes 10 cigars per week. He smoked one pack per day of cigarettes for 15 years. He occasionally drinks alcohol. FAMILY HISTORY: Paternal grandfather had a stroke. Father has hypertension. REVIEW OF SYSTEMS: All systems were reviewed and found to be noncontributory except as mentioned in the history present illness. PHYSICAL EXAMINATION: VITAL SIGNS: Temperature 97.5, pulse 86, respiratory rate 18, blood pressure 138/82, 95% saturation on room air. HEART: Regular rate and rhythm. LUNGS: Clear to auscultation. ABDOMEN: Soft, nontender, nondistended. No pedal edema. EAR, NOSE AND THROAT: Examination is within normal limits. NEUROLOGIC EXAMINATION: The patient is awake, alert, oriented to place, person and time. Normal speech, comprehension and repetition. Extraocular muscles are intact. No facial weakness. Tongue, uvula midline. 5/5 strength in all four extremities. Deep tendon flexes are 1+ throughout. He has mildly decreased cold, pinprick, vibration sensation in his feet. Gait is normal. There is no dysmetria. DIAGNOSTIC STUDIES: His MRI scan of brain was reviewed and showed two small left temporal lacunar ischemic strokes. Carotid ultrasound showed less than 50% bilateral carotid artery stenosis. MRA of the brain was within normal limits. His LDL was 93 and total cholesterol was 177 with HDL 31. ASSESSMENT: 1. Two small ischemic lacunar strokes in the left temporal lobe. 2. Less than 50% bilateral carotid artery stenosis. 3. Rule out coagulopathy and vasculopathy. PLAN: 1. Echocardiogram and continue telemonitoring. 2. Blood tests to rule out coagulopathy and vasculopathy. 3. Reduce aspirin to 81 mg by mouth daily and add Plavix 75 mg by mouth daily. After two weeks we may discontinue aspirin and just continue Plavix. 4. Follow with our office in two weeks after hospital discharge. cc: Sunshine Diaz MD
[2017-01-02] MEDS: CLOPIDOGREL 75 MG TAB PO SCH (08:16)
[2017-01-02] MEDS: ASPIRIN 81 MG ENTERIC TAB PO SCH (08:16)
[2017-01-02] MEDS: ATORVASTATIN 20 MG TAB PO SCH (08:16)
[2017-01-02] MEDS: HumaLOG INSULIN (NovoLOG) PER UNIT SC SCH ×4 (08:17→21:45)
[2017-01-02] MEDS: ENOXAPARIN 40 MG/0.4 ML SYRINGE (J1650) SC SCH (08:17)
--- NOTE | 2017-01-02 13:48 | IPNPDOC ---
Subjective Date Seen The patient was seen on 01/02/17. Subjective Chief Complaint/HPI The patient is a 61-year-old male admitted with a reason for visit of Slurred Speech; Tia. General: Denies: Chills, Night Sweats Constitutional: Denies: Chills, Fever Eyes: Denies: Pain, Vision change ENT: Denies: Ear Pain, Head Aches Skin: Denies: Lesions, Rash Pulmonary: Denies: Cough, Dyspnea Cardiovascular: Denies: Chest Pain, Palpitations Gastrointestinal: Denies: Abdominal Pain, Nausea, Vomiting Genitourinary: Denies: Dysuria, Frequency Hematologic: Denies: Bleeding Excessively, Bruising Objective Physical Examination General Exam: Positive: Alert, Cooperative, No Acute Distress Eye Exam: Positive: EOMI, PERRLA ENT Exam: Positive: Atraumatic, Mucous membr. moist/pink Neck Exam: Negative: JVD Chest Exam: Positive: Clear to auscultation, Normal air movement Heart Exam: Positive: Normal S1, Normal S2, Rate Normal Telemetry: Positive: Sinus Abdomen Exam: Positive: Soft, Negative: Tenderness Extremity Exam: Negative: Swelling, Tenderness Neuro Exam: Positive: Cranial Nerves 3-12 NL, Sensation Intact, Strength at 5/ 5 X4 ext Assessment /Plan Plan/VTE VTE Prophylaxis Ordered?: Yes Plan Left temporal CVA: MRI of the Brain results noted MRA and U/S of the Carotids with no acute findings Hypercoagulable workup pending On ASA 81mg prior to event, Plavix 75mg daily added as per neurology team, Dr. Vera Patient advised to continue dual therapy for 2 weeks and then discontinue ASA thereafter Cont Lipitor 2-D echo pending Physical therapy evaluation noted I have extensively discussed the importance of mitigating the patient's risk factors moving forward including cutting down on tobacco use, obesity, hypertension, better control of diabetes We will continue to monitor the patient's progress 2. DM2. Hemoglobin A1c noted to be 7.4% Continue insulin sliding scale 3. HTN. continue on diuretic and losartan 4. Active Tobacco use, Counseled extensively on the need for cessation 6. Ulcerative colitis, stable DVT prophylaxis-Lovenox Disposition-Will await 2-D echo study, anticipate discharge in 24-48 hours. VS, I&O, 24H, Fishbone Vital Signs/I&O Vital Signs Date Time Temp Pulse Resp B/P Pulse Ox O2 Delivery O2 Flow Rate FiO2 01/02/17 12:02 144/90 01/02/17 11:44 97.5 83 20 94 Room Air I&O- Last 24 Hours up to 6 AM 01/02/17 06:00 Intake Total 1440 ml Output Total 1350 ml Balance 90 ml Laboratory Data 24H LABS Laboratory Tests 2 01/01/17 16:33: Bedside Glucose (Misc Panel) 119H 01/01/17 21:25: Bedside Glucose (Misc Panel) 191H 01/02/17 05:36: Estimated Mean Plasma Glucose 166H, Hemoglobin A1c 7.4H 01/02/17 07:37: Bedside Glucose (Misc Panel) 164H 01/02/17 11:37: Bedside Glucose (Misc Panel) 208H BOAZ CAMPOS MD Jan 02, 2017 13:48
[2017-01-02] MEDS: LOSARTAN 50 MG TAB PO SCH (17:35)
[2017-01-03 00:37] VITALS: BP 123/80
[2017-01-03] MEDS: SLF 3 ML SYR IV SCH (06:00)
[2017-01-03 06:25] VITALS: BP 128/89
[2017-01-03 08:00] VITALS: BP 142/92
[2017-01-03] MEDS: ENOXAPARIN 40 MG/0.4 ML SYRINGE (J1650) SC SCH (08:01)
[2017-01-03 08:02] VITALS: BP 134/78
[2017-01-03] MEDS: ASPIRIN 81 MG ENTERIC TAB PO SCH (08:02)
[2017-01-03] MEDS: LOSARTAN 50 MG TAB PO SCH (08:02)
[2017-01-03] MEDS: HumaLOG INSULIN (NovoLOG) PER UNIT SC SCH (08:02)
[2017-01-03] MEDS: ATORVASTATIN 20 MG TAB PO SCH (08:03)
[2017-01-03] MEDS: CLOPIDOGREL 75 MG TAB PO SCH (08:03)
[2017-01-03] MEDS ORDERED: CHLORTHALIDONE 25 MG TAB PO SCH (09:00)
[2017-01-03 09:31] LABS: PROTEIN C ANTIGEN 93 % (60-150)
[2017-01-03] MEDS ORDERED: CLOP75TA2 PO (10:04)
[2017-01-03] MEDS ORDERED: ATOR1TAB21 PO (10:04)
--- NOTE | 2017-01-03 14:06 | EDDOCDS ---
Nurse's Notes [facility] Name: Alec Staples Age: 61 yrs Sex: Male : 1955 Arrival Date: 12/31/2016 Time: 20:12 Bed Admit Hold Private MD: Apryl Mathis A Diagnosis: Transient cerebral ischemic attack, unspecified Presentation: 12/31 20:25 Presenting complaint: Patient states: that tonight at work he experienced some slurred ms18 speech. Pt states that over the past few days he has experienced dizzy spells and some numbness in his R hand. Pt has a history of strokes in his family. The last date and time the patient was known to be well was was at 18:30 on December 31, 2016. No acute neurological deficit is noted. Pre-hospital glucose is not applicable to this patient. Adult Sepsis Screening: The patient does not have new or worsening altered mentation. Patient's respiratory rate is less than 22. Systolic blood pressure is greater than 100. Patient has a qSOFA score of 0- Negative Sepsis Screen. Suicide/Homicide risk assessment- the patient denies having any suicidal and/or homicidal ideations and does not present with any other emotional, behavioral or mental health complaints. Status: retired . Transition of care: patient was not received from another setting of care. Red Flag criteria, patient assessed and taken directly to a bed. 20:25 Acuity: TEENA Level 3 ms18 20:25 Method Of Arrival: Walkin/Carried/Asstd ms18 Triage Assessment: 20:31 The onset of the patients symptoms was less than three hours ago. General: Appears in ms18 no apparent distress, comfortable, obese, well nourished, well groomed, Behavior is appropriate for age, cooperative, pleasant. Pain: Denies pain. HIV screening NA for this visit Offered previously. Neurological: Level of Consciousness is awake, alert, obeys commands, Oriented to person, place, time, Reports no additional symptoms. Respiratory: Airway is patent Respiratory effort is even, unlabored. Derm: Skin is pink, warm & dry. normal. Historical: - Allergies: no known allergies; - Home Meds: 1. metformin 500 mg Oral Tb24 4 tabs once daily (Last dose: 12/31/2016 16:30) 2. losartan 100 mg oral tab 1 tab once daily (Last dose: 12/31/2016 08:00) 3. chlorthalidone 25 mg Oral tab 1 tab once daily 4. aspirin 81 mg Oral tab 1 tab once daily 5. Centrum Silver oral tab daily - PMHx: Hypertension; Ulcerative Colitis; Diabetes - NIDDM: controlled; - PSHx: Vasectomy; Colonoscopy; - Social history: Smoking status: Cigars No barriers to communication noted, The patient speaks fluent Indonesian. - : The pt / caregiver states he / she is not on anticoagulants. Home medication list is obtained from the patient. - Exposure Risk Screening:: None identified. Assessment: 21:12 General: Appears in no apparent distress, comfortable, Behavior is appropriate for age, nn1 cooperative. Pain: Denies pain. 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 Speech is normal, Facial symmetry appears normal, Patient reports about 3 minutes of slurred speech earlier in the day, states he felt like his mouth was drooping to the left. No droop noted at this time. Patient states over the last 10 days he has had 1 episode of dizziness and 1 episode of numbness in right hand.. Reports no additional symptoms. Cardiovascular: Capillary refill < 3 seconds Chest pain is denied. Respiratory: Airway is patent Respiratory effort is even, unlabored, Respiratory pattern is regular, symmetrical, Breath sounds are clear bilaterally. Derm: Skin is pink, warm & dry. Musculoskeletal: No deficits noted. 22:20 Reassessment: Patient appears in no apparent distress at this time. Neurological: Level nn1 of Consciousness is awake, alert, obeys commands, Oriented to person, place, time, Tree Worker are equal bilaterally Moves all extremities. Speech is normal, Facial symmetry appears normal, No changes in neuro status . Derm: Skin is pink, warm & dry. 23:43 General: Appears in no apparent distress, comfortable, Behavior is appropriate for age, nn1 cooperative. General: Report given to Chu Quach RN . Pain: Denies pain. 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 Speech is normal, Facial symmetry appears normal. Respiratory: Airway is patent Respiratory effort is even, unlabored, Respiratory pattern is regular, symmetrical. Derm: Skin is pink, warm & dry. 01/01 07:43 General: monitor is sr with rate of 82. [facility] Vital Signs: 12/31 20:14 BP 159 / 101; Pulse 98; Resp 16; Temp 97.6(O); Pulse Ox 97% on R/A; Weight 119.75 kg lr2 (R); Height 5 ft. 11 in. (180.34 cm); Pain 0/10; 20:21 BP 145 / 87 (auto/); ms18 20:23 Pulse 96 MON; Pulse Ox 96% ; ms18 20:36 BP 137 / 81 (auto/); nn1 20:36 Pulse 86 MON; Pulse Ox 96% ; nn1 20:51 BP 142 / 93 (auto/); nn1 20:51 Pulse 92 MON; Pulse Ox 97% ; nn1 21:00 BP 138 / 88 LA Supine (man/lg); rs6 21:05 Pulse 88 MON; Pulse Ox 96% ; nn1 21:06 BP 122 / 80 (auto/); nn1 21:20 Pulse 92 MON; Pulse Ox 97% ; nn1 21:21 BP 141 / 77 (auto/); nn1 21:35 Pulse 92 MON; Pulse Ox 97% ; nn1 21:36 BP 138 / 75 (auto/); nn1 21:51 BP 125 / 64 (auto/); nn1 21:51 Pulse 88 MON; Pulse Ox 95% ; nn1 22:05 Pulse 86 MON; Pulse Ox 97% ; nn1 22:06 BP 132 / 72 (auto/); nn1 22:20 Pulse 82 MON; Pulse Ox 96% ; nn1 22:21 BP 117 / 69 (auto/); nn1 22:21 Pulse 82 MON; Pulse Ox 95% ; nn1 22:36 BP 122 / 72 (auto/); nn1 22:36 Pulse 82 MON; Pulse Ox 95% ; nn1 22:51 BP 119 / 71 (auto/); nn1 22:51 Pulse 86 MON; Pulse Ox 95% ; nn1 23:06 BP 118 / 70 (auto/); nn1 23:06 Pulse 84 MON; Pulse Ox 95% ; nn1 20:14 Body Mass Index 36.82 (119.75 kg, 180.34 cm) [facility] Vitals: 20:31 Glucose Measurement will do with blood work. Log In Time: December 31, 2016 at 20:12. ms18 ED Course: 20:14 Patient visited by Lisette Stuart. lr2 20:14 Apryl Mathis is Private Physician. lr2 20:14 Patient moved to Waiting lr2 20:19 Jojo Moore,RN is Primary Nurse. lr2 20:19 Patient moved to 11 lr2 20:25 Patient visited by Diana Cooley RN. ms18 20:27 Triage Initiated ms18 20:[address] benjamin 20:43 Pt greeted and oriented to ED. Patient advised of names of staff involved in care, rs6 location of call huizar, wait times and NPO status. Accompanied by Significant Other, Patient has correct armband on for positive identification. Placed in gown. Bed in low position. Call light in reach. Side rails up X 1. youth nutritional monitor on. Pulse ox on. NIBP on. 20:43 EKG done. (by ED staff). Reviewed by Salbador CESAR. rs6 20:44 Patient visited by Kelsea Colón PCA. rs6 20:56 Salbador Santana FNP is PHCP. ke 20:56 Patient visited by Salbador Santana FNP. ke 20:56 Patient visited by Salbador Santana FNP. ke 21:00 Patient visited by Kelsea Colón PCA. rs6 21:00 Patient moved to 11 rs6 21:08 CT Head Without Contrast Returned. EDMS 21:14 Patient visited by Salbador Santana FNP. ke 21:14 Inserted saline lock: 20 gauge in left and blood collected. The patient tolerated the nn1 procedure well. left wrist 20g. 21:44 Patient visited by Salbador Santana FNP. ke 22:18 Patient visited by Salbador Santana FNP. ke 22:32 Sunshine Diaz is Hospitalizing Provider. ke 23:20 Patient moved to 20 sls1 23:26 Patient moved to Admit Hold sls1 01/01 00:54 [facility] Payment Agreement was scanned into Instant [employer] and attached to record. hs2 01:50 Primary Nurse role handed off by Jojo Moore,NIURKA rs6 02:20 MRA BRAIN W/O CONTRAST Returned. EDMS 02:57 MRI Brain without Contrast Returned. EDMS 03:13 Patient moved to Ultrasound en 03:54 Patient moved to 20 en 06:05 Duplex,carotid (complete) Returned. EDMS 06:52 Patient moved to Admit Hold sls1 08:03 Chest, 1 View Returned. EDMS 10:06 ELECTROCARDIOGRAM ADULT Returned. EDMS 01/03 08:18 T-Sheet-- Draft Copy was scanned into [employer] and attached to record. lg 08:18 ECG/EKG was scanned into [employer] and attached to record. lg 08:19 Trend VS was scanned into [employer] and attached to record. lg 08:19 Radiology Report was scanned into [employer] and attached to record. lg Administered Medications: 12/31 21:24 Drug: Aspirin 324 mg [aspirin 81 mg chewable tablet (4 tabs)] Route: PO; nn1 Attachments: 08:19 Trend VS lg Point of Care Testing: Blood Glucose: 12/31 21:15 Blood Glucose: 170 mg/dL; nn1 Ranges: Order Results: Lab Order: Basic Metabolic Profile; SPEC'M 12/31/16 21:01 Test: GLUCOSE, FASTING; Value: 153; Range: 80-110; Abnormal: Above high normal; Units: MG/DL; Status: F Test: BLOOD UREA NITROGEN; Value: 20; Range: 7-18; Abnormal: Above high normal; Units: MG/DL; Status: F Test: CREATININE FOR GFR; Value: 0.99; Range: 0.70-1.30; Units: MG/DL; Status: F Test: GLOMERULAR FILTRATION RATE; Value: > 60.0; Range: >49; Status: F Test: SODIUM LEVEL; Value: 140; Range: 136-145; Units: MEQ/L; Status: F Test: POTASSIUM SERUM; Value: 3.4; Range: 3.5-5.1; Abnormal: Below low normal; Units: MEQ/L; Status: F Test: CHLORIDE LEVEL; Value: 103; Range: 98-107; Units: MEQ/L; Status: F Test: CARBON DIOXIDE LEVEL; Value: 28; Range: 21-32; Units: MEQ/L; Status: F Test: ANION GAP; Value: 9; Range: 8-16; Units: MEQ/L; Status: F Test: CALCIUM LEVEL; Value: 9.3; Range: 8.8-10.2; Units: MG/DL; Status: F Test Note: ; Units are mL/min/1.73 m2 Chronic Kidney Disease Staging per NKF: Stage I & II GFR >=60 Normal to Mildly Decreased Stage III GFR 30-59 Moderately Decreased Stage IV GFR 15-29 Severely Decreased Stage V GFR <15 Very Little GFR Left ESRD GFR <15 on ALLERGIST/MD Lab Order: CBC with Diff; SPEC'M 12/31/16 21:01 Test: WHITE BLOOD COUNT; Value: 9.0; Range: 4.0-10.0; Units: K/mm3; Status: F Test: RED BLOOD COUNT; Value: 5.01; Range: 4.30-6.10; Units: M/mm3; Status: F Test: HEMOGLOBIN; Value: 15.1; Range: 14.0-18.0; Units: g/dl; Status: F Test: HEMATOCRIT; Value: 42.0; Range: 42.0-52.0; Units: %; Status: F Test: MEAN CORPUSCULAR VOLUME; Value: 83.9; Range: 80.0-96.0; Units: fl; Status: F Test: MEAN CORPUSCULAR HEMOGLOBIN; Value: 30.1; Range: 27.0-33.0; Units: pg; Status: F Test: MEAN CORPUSCULAR HGB CONC; Value: 35.8; Range: 32.0-36.5; Units: g/dl; Status: F Test: RED CELL DISTRIBUTION WIDTH; Value: 13.6; Range: 11.5-14.5; Units: %; Status: F Test: PLATELET COUNT, AUTOMATED; Value: 205; Range: 150-450; Units: k/mm3; Status: F Test: NEUTROPHILS %; Value: 51.6; Range: 36.0-66.0; Units: %; Status: F Test: LYMPH %; Value: 38.2; Range: 24.0-44.0; Units: %; Status: F Test: MONO %; Value: 5.3; Range: 0.0-5.0; Abnormal: Above high normal; Units: %; Status: F Test: EOS %; Value: 2.0; Range: 0.0-3.0; Units: %; Status: F Test: BASO %; Value: 0.8; Range: 0.0-1.0; Units: %; Status: F Test: LARGE UNSTAINED CELL %; Value: 2.1; Range: 0.0-4.0; Units: %; Status: F Test: NEUTROPHILS #; Value: 4.6; Range: 1.8-7.7; Units: K/mm3; Status: F Test: LYMPH #; Value: 3.4; Range: 1.5-4.5; Units: K/mm3; Status: F Test: MONO #; Value: 0.5; Range: 0.0-0.8; Units: K/mm3; Status: F Test: EOS #; Value: 0.2; Range: 0.0-0.50; Units: K/mm3; Status: F Test: BASO #; Value: 0.1; Range: 0.0-0.2; Units: K/mm3; Status: F Test: LARGE UNSTAINED CELL #; Value: 0.2; Range: 0.0-0.4; Units: K/mm3; Status: F Lab Order: Partial Thromboplastin Time; [facility] 12/31/16 21:01 Test: PARTIAL THROMBOPLASTIN TIME; Value: 27.2; Range: 26.6-37.1; Units: SECONDS; Status: F Lab Order: Prothrombin Time Profile\E\INR; [facility] 12/31/16 21:01 Test: PROTHROMBIN TIME; Value: 14.3; Range: 12.3-14.5; Units: SECONDS; Status: F Test: INR; Value: 1.10; Status: F Test Note: ; THERAPUTIC HUMAN INR VALUES INDICATIONS NORMAL RANGES PROPHYLAXIS/TREATMENT OF: VENOUS THROMBOSIS 2.0-3.0 PULMONARY EMBOLISM 2.0-3.0 PREVENTION OF SYSTEMIC EMBOLISM FROM: TISSUE HEART VALVES 2.0-3.0 ACUTE MYOCARDIAL INFARCTION 2.0-3.0 VALVULAR HEART DISEASE 2.0-3.0 ATRIAL FIBRILLATION 2.0-3.0 MECHANICAL VALVES(HIGH RISK) 2.5-3.5 RECURRENT MYOCARDIAL INFARCTION 2.5-3.5 Lab Order: Type & Screen; 12/31/16 21:01 Test: BLOOD TYPE; Value: O POS; Status: F Test: AB SCREEN (INDIRECT HUSAM)VIS; Value: NEGATIVE; Status: F Lab Order: Fingerstick Blood Sugar; [facility]' 12/31/16 20:53 Test: BEDSIDE GLUCOSE; Value: 170; Range: 80-115; Abnormal: Above high normal; Units: MG/DL; Status: F Test Note: ; RN Notified Doctor Notified Lab Order: CARDIAC RISK PROFILE; [facility] 01/01/17 06:31 Test: TRIGLYCERIDES LEVEL; Value: 177; Range: <150; Abnormal: Above high normal; Units: MG/DL; Status: F Test: CHOLESTEROL LEVEL; Value: 160; Range: <200; Units: MG/DL; Status: F Test: HDL CHOLESTEROL; Value: 31; Range: >40; Abnormal: Below low normal; Units: MG/DL; Status: F Test: LDL CHOLESTEROL; Value: 93.6; Range: <100; Units: MG/DL; Status: F Test: NON-HDL-C; Value: 129; Units: MG/DL; Status: F Test: CHOLESTEROL RISK RATIO; Value: 5.161; Range: <5; Abnormal: Above high normal; Status: F Lab Order: CBC WITH DIFFERENTIAL; [facility] 01/01/17 06:44 Test: WHITE BLOOD COUNT; Value: 8.8; Range: 4.0-10.0; Units: K/mm3; Status: F Test: RED BLOOD COUNT; Value: 4.84; Range: 4.30-6.10; Units: M/mm3; Status: F Test: HEMOGLOBIN; Value: 14.4; Range: 14.0-18.0; Units: g/dl; Status: F Test: HEMATOCRIT; Value: 41.3; Range: 42.0-52.0; Abnormal: Below low normal; Units: %; Status: F Test: MEAN CORPUSCULAR VOLUME; Value: 85.4; Range: 80.0-96.0; Units: fl; Status: F Test: MEAN CORPUSCULAR HEMOGLOBIN; Value: 29.8; Range: 27.0-33.0; Units: pg; Status: F Test: MEAN CORPUSCULAR HGB CONC; Value: 34.9; Range: 32.0-36.5; Units: g/dl; Status: F Test: RED CELL DISTRIBUTION WIDTH; Value: 13.9; Range: 11.5-14.5; Units: %; Status: F Test: PLATELET COUNT, AUTOMATED; Value: 215; Range: 150-450; Units: k/mm3; Status: F Test: NEUTROPHILS %; Value: 48.7; Range: 36.0-66.0; Units: %; Status: F Test: LYMPH %; Value: 41.2; Range: 24.0-44.0; Units: %; Status: F Test: MONO %; Value: 4.9; Range: 0.0-5.0; Units: %; Status: F Test: EOS %; Value: 2.5; Range: 0.0-3.0; Units: %; Status: F Test: BASO %; Value: 0.9; Range: 0.0-1.0; Units: %; Status: F Test: LARGE UNSTAINED CELL %; Value: 1.8; Range: 0.0-4.0; Units: %; Status: F Test: NEUTROPHILS #; Value: 4.3; Range: 1.8-7.7; Units: K/mm3; Status: F Test: LYMPH #; Value: 3.8; Range: 1.5-4.5; Units: K/mm3; Status: F Test: MONO #; Value: 0.4; Range: 0.0-0.8; Units: K/mm3; Status: F Test: EOS #; Value: 0.2; Range: 0.0-0.50; Units: K/mm3; Status: F Test: BASO #; Value: 0.1; Range: 0.0-0.2; Units: K/mm3; Status: F Test: LARGE UNSTAINED CELL #; Value: 0.2; Range: 0.0-0.4; Units: K/mm3; Status: F Lab Order: BASIC METABOLIC PROFILE; [facility]01/01/17 06:31 Test: GLUCOSE, FASTING; Value: 148; Range: 80-110; Abnormal: Above high normal; Units: MG/DL; Status: F Test: BLOOD UREA NITROGEN; Value: 20; Range: 7-18; Abnormal: Above high normal; Units: MG/DL; Status: F Test: CREATININE FOR GFR; Value: 0.85; Range: 0.70-1.30; Units: MG/DL; Status: F Test: GLOMERULAR FILTRATION RATE; Value: > 60.0; Range: >49; Status: F Test: SODIUM LEVEL; Value: 142; Range: 136-145; Units: MEQ/L; Status: F Test: POTASSIUM SERUM; Value: 3.5; Range: 3.5-5.1; Units: MEQ/L; Status: F Test: CHLORIDE LEVEL; Value: 105; Range: 98-107; Units: MEQ/L; Status: F Test: CARBON DIOXIDE LEVEL; Value: 28; Range: 21-32; Units: MEQ/L; Status: F Test: ANION GAP; Value: 9; Range: 8-16; Units: MEQ/L; Status: F Test: CALCIUM LEVEL; Value: 9.1; Range: 8.8-10.2; Units: MG/DL; Status: F Test Note: ; Units are mL/min/1.73 m2 Chronic Kidney Disease Staging per NKF: Stage I & II GFR >=60 Normal to Mildly Decreased Stage III GFR 30-59 Moderately Decreased Stage IV GFR 15-29 Severely Decreased Stage V GFR <15 Very Little GFR Left ESRD GFR <15 on ALLERGIST/MD Lab Order: THYROID STIMULATING HORMONE; SPEC'M 01/01/17 06:31 Test: THYROID STIMULATING HORMONE; Value: 2.050; Range: 0.358-3.740; Units: uIU/ML; Status: F Radiology Order: CT Head Without Contrast Test: CT Head Without Contrast REASON FOR EXAMINATION: CVA <4.5hrs; ; CT of the head; Clinical history: Headache. CVA.; Technique: Multiple axial CT images were obtained through the head without administration of contrast; .; Findings: The ventricles and sulci are symmetric bilaterally. There is no evidence of acute hemorrhag; e or infarct. There is no midline shift, mass effect, or extra-axial fluid collection. The osseous st; ructures are unremarkable. The visualized paranasal sinuses and mastoid air cells are clear.; Impression: Negative study.; ; Radiology Order: Chest, 1 View Test: Chest, 1 View REASON FOR EXAMINATION: CVA <4.5hrs; Clinical: Cerebrovascular accident .; ; Comparison: None .; ; Findings:; The mediastinum and cardiac silhouette are stable and within normal limits for; portable technique. The lung norman are clear without acute consolidation,; effusion, or pneumothorax. Skeletal structures are intact.; ; Impression:; Normal portable chest x-ray; ; ; Signed by; Bruno Wong MD 01/01/2017 07:43 A; Radiology Order: ELECTROCARDIOGRAM ADULT Test: ELECTROCARDIOGRAM ADULT REASON FOR EXAMINATION: CVA <4.5hrs; Stationary ECG Study; [facility] - ED; ; Test Date: 2016-12-31; Pat Name: ALEC STAPLES Department:; Room: [place] [address]; Gender: M Trousseau Consultant: rs; : 1955 Requested By: SINCERE Simmons; Order Number: [id number] Reading MD: Jaclyn Muniz; Measurements; Intervals [place]; Rate: 83 P: 32; WV: 154 QRS: 26; QRSD: 92 T: 11; QT: 377; QTc: 445; Interpretive Statements; SINUS RHYTHM; NSTTW ABNORMALITY; NO PRIOR FOR COMPARISON; Electronically Signed On 01-01-2017 10:03:21 EST by Jaclyn Muniz; Radiology Order: MRI Brain without Contrast Test: MRI Brain without Contrast REASON FOR EXAMINATION: slurred speech-page w result; ; CLINICAL HISTORY: Suspected ischemia.; TECHNIQUE: MRI of the brain was performed utilizing multiple sequences in axial, coronal and sagittal; planes without IV contrast material.; COMMENTS:; There are 2 foci of restricted diffusion in the left temporal periventricular and subcortical white m; atter with the largest measuring 5 mm.; The sella and parasellar region are unremarkable in appearance.; The corpus callosum and cerebellar tonsils are of normal configuration and position.; There are no intra or extra-axial collections.; There is no mass effect or midline shift. There is no evidence of hematoma formation. There is no hyd; rocephalus.; The visualized arterial structures demonstrate normal appearing flow voids.; The seventh and eighth nerve bundles are visualized and are unremarkable in appearance.; Several foci of T2/FLAIR hyperintensity are noted in the bilateral periventricular and subcortical wh; ite matter compatible with mild chronic white matter ischemic changes.; Generalized proportionate dilatation of ventricles and sulci is present compatible with age-appropria; te parenchymal atrophy.; IMPRESSION:; 1. Two acute ischemic foci in the left temporal periventricular and subcortical white matter with the; largest measuring 5 mm.; 2. Generalized age-appropriate parenchymal atrophy.; 3. Mild chronic white matter microvascular ischemic changes.; Thank you for your kind referral of this patient.; ; ; Radiology Order: MRA BRAIN W/O CONTRAST Test: MRA BRAIN W/O CONTRAST REASON FOR EXAMINATION: slurred speech-page w result; ; CLINICAL HISTORY: CVA.; TECHNIQUE: Three dimensional [id number] angiography is performed of the [place]. The [place]; dy was performed without IV contrast agent.; FINDINGS: The supraclinoid portions of the internal carotid arteries are of normal shape. The normal; bifurcation is seen. The middle cerebral arteries are unremarkable in appearance. The posterior circu; lation is visualized and shows no evidence of occlusion or aneurysm formation. The basilar tip is see; n and shows no aneurysm formation. There is no evidence of beading to suggest vasculitis.; IMPRESSION:; MRA of the [place] is within normal limits.; Thank you for your kind referral of this patient.; ; Radiology Order: Duplex,carotid (complete) Test: Duplex,carotid (complete) REASON FOR EXAMINATION: CVA; ; CLINICAL HISTORY: Cerebral ischemia.; COMMENTS:; Real time sonography with duplex doppler of the carotid arteries bilaterally was performed.; Bilateral atheromatous plaques of the common carotid arteries extending to the proximal aspect of the; internal and external carotid arteries.; Antegrade flow in the vertebral arteries.; IMPRESSION:; Bilateral less than 50% stenosis of the takeoff of the internal carotid arteries.; Thank you for your kind referral of this patient.; ; Outcome: 22:33 Decision to Hospitalize by Provider. seble 01/01 13:05 Patient left the ED. ttb Signatures: Dispatcher [employer] EDMS Orlando Conway,RN RN Evans Kraft LoriLee, Salbador Feldman lg, WASTEWATER PLANT OPERATOR WASTEWATER PLANT OPERATOR Arabella Morrison RN RN sls1 Gaby Hawkins, RN RN ttb Diana Cooley,RN RN ms18 Kelsea Coóln, HUMAN RESOURCES BENEFITS ASSISTANT HUMAN RESOURCES BENEFITS ASSISTANT rs6 Alma Ba,RN RN nn1 Marilia Mendez Hillary, Reg Reg hs2 Lisette Stuart lr2 Chart Complete MTDD
--- NOTE | 2017-01-03 14:06 | EDDOCDS ---
Physician Documentation [facility] Name: Jeff Lazcano Age: 61 yrs Sex: Male : 1955 Arrival Date: 12/31/2016 Time: 20:12 Bed Admit Hold Private MD: Apryl Mathis A Disposition: 12/31/16 22:33 Hospitalization ordered by Sunshine Diaz for Inpatient Admission. Preliminary diagnosis is Transient cerebral ischemic attack, unspecified. - Bed requested for PCU. - Status is Inpatient Admission. ttb - Condition is Stable. - Problem is an ongoing problem. - Symptoms are unchanged. Historical: - Allergies: no known allergies; - Home Meds: 1. metformin 500 mg Oral Tb24 4 tabs once daily (Last dose: 12/31/2016 16:30) 2. losartan 100 mg oral tab 1 tab once daily (Last dose: 12/31/2016 08:00) 3. chlorthalidone 25 mg Oral tab 1 tab once daily 4. aspirin 81 mg Oral tab 1 tab once daily 5. Centrum Silver oral tab daily - PMHx: Hypertension; Ulcerative Colitis; Diabetes - NIDDM: controlled; - PSHx: Vasectomy; Colonoscopy; - Social history: Smoking status: Cigars No barriers to communication noted, The patient speaks fluent [place]. - : The pt / caregiver states he / she is not on anticoagulants. Home medication list is obtained from the patient. - Exposure Risk Screening:: None identified. Vital Signs: 12/31 20:14 BP 159 / 101; Pulse 98; Resp 16; Temp 97.6(O); Pulse Ox 97% on R/A; Weight 119.75 kg / lr2 264 lbs (R); Height 5 ft. 11 in. (180.34 cm); Pain 0/10; 20:21 BP 145 / 87 (auto/); ms18 20:23 Pulse 96 MON; Pulse Ox 96% ; ms18 20:36 BP 137 / 81 (auto/); nn1 20:36 Pulse 86 MON; Pulse Ox 96% ; nn1 20:51 BP 142 / 93 (auto/); nn1 20:51 Pulse 92 MON; Pulse Ox 97% ; nn1 21:00 BP 138 / 88 LA Supine (man/lg); rs6 21:05 Pulse 88 MON; Pulse Ox 96% ; nn1 21:06 BP 122 / 80 (auto/); nn1 21:20 Pulse 92 MON; Pulse Ox 97% ; nn1 21:21 BP 141 / 77 (auto/); nn1 21:35 Pulse 92 MON; Pulse Ox 97% ; nn1 21:36 BP 138 / 75 (auto/); nn1 21:51 BP 125 / 64 (auto/); nn1 21:51 Pulse 88 MON; Pulse Ox 95% ; nn1 22:05 Pulse 86 MON; Pulse Ox 97% ; nn1 22:06 BP 132 / 72 (auto/); nn1 22:20 Pulse 82 MON; Pulse Ox 96% ; nn1 22:21 BP 117 / 69 (auto/); nn1 22:21 Pulse 82 MON; Pulse Ox 95% ; nn1 22:36 BP 122 / 72 (auto/); nn1 22:36 Pulse 82 MON; Pulse Ox 95% ; nn1 22:51 BP 119 / 71 (auto/); nn1 22:51 Pulse 86 MON; Pulse Ox 95% ; nn1 23:06 BP 118 / 70 (auto/); nn1 23:06 Pulse 84 MON; Pulse Ox 95% ; nn1 20:14 Body Mass Index 36.82 (119.75 kg, 180.34 cm) lr2 MDM: 20:30 RN interventions must not delay CT ordered. br1 20:30 Tub Chucker/Pulse Ox/q 15 min VS ordered. br1 20:30 Accucheck ordered. br1 20:30 IV Saline Lock ordered. br1 20:31 Neuro VS q 15 Minutes ordered. br1 20:31 Rhythm Strip to chart ordered. br1 20:31 Misc. Nursing Order ordered. br1 20:32 Basic Metabolic Profile Ordered. EDMS 20:32 CBC with Diff Ordered. EDMS 20:32 Partial Thromboplastin Time Ordered. EDMS 20:32 Prothrombin Time Profile\E\INR Ordered. EDMS 20:33 Chest, 1 View Ordered. EDMS 20:33 Type & Screen Ordered. EDMS 20:33 CT Head Without Contrast Ordered. EDMS 20:33 ECG WITH READING ER PHYS+CARDIAG ordered. EDMS 21:04 Aspirin 324 mg PO once ordered. ke 21:10 Fingerstick Blood Sugar Ordered. EDMS 22:06 Basic Metabolic Profile Reviewed. ke 22:06 CBC with Diff Reviewed. ke 22:06 Fingerstick Blood Sugar Reviewed. ke 22:06 Partial Thromboplastin Time Reviewed. ke 22:06 Prothrombin Time Profile\E\INR Reviewed. ke 22:06 Type & Screen Reviewed. ke 22:06 CT Head Without Contrast Reviewed. ke 22:20 BED REQUEST+ADM ordered. EDMS 22:42 NO ADDED SALT DIET ordered. EDMS 22:42 CARDIAC RISK PROFILE Ordered. EDMS 22:42 CBC WITH DIFFERENTIAL Ordered. EDMS 22:43 BASIC METABOLIC PROFILE Ordered. EDMS 22:43 THYROID STIMULATING HORMONE Ordered. EDMS 22:43 PHYSICAL THERAPY EVAL & TREAT ordered. EDMS 22:44 Admission / Observation Status ordered. EDMS 23:31 Financial registration complete. hs2 01/01 00:54 [facility] Payment Agreement was scanned into [employer] and attached to record. hs2 01:16 MRI Brain without Contrast Ordered. EDMS 01:23 MRA BRAIN W/O CONTRAST Ordered. EDMS 03:03 ECHOCARD,DOPPLER/COLOR FLOW ordered. EDMS 03:04 Duplex,carotid (complete) Ordered. EDMS 03:06 ANTINUCLEAR ANTIBODIES Ordered. EDMS 03:06 ANTI-CARDIOLIPIN ANTIBODIES Ordered. EDMS 03:06 PROTEIN C ANTIGEN Ordered. EDMS 03:06 ANTI THROMBIN 3 PANEL (AG/AC) Ordered. EDMS 03:06 HOMOCYSTEINE Ordered. EDMS 06:44 FACTOR II PROTHROMBIN GENE AN Ordered. EDMS 06:44 FACTOR V LEIDEN Ordered. EDMS 01/03 08:18 T-Sheet-- Draft Copy was scanned into [employer] and attached to record. lg 08:18 ECG/EKG was scanned into [employer] and attached to record. lg 08:19 Trend VS was scanned into [employer] and attached to record. lg 08:19 Radiology Report was scanned into [employer] and attached to record. Point of Care Testing: Blood Glucose: 12/31 21:15 Blood Glucose: 170 mg/dL; nn1 Ranges: Administered Medications: 21:24 Drug: Aspirin 324 mg [aspirin 81 mg chewable tablet (4 tabs)] Route: PO; nn1 Signatures: Dispatcher [employer] EDME Dragan Rosa, Yovani Reg lg Salbador Santana, DEVELOPMENT ARCHITECT DEVELOPMENT ARCHITECTAngel Iqbal MD MD br1 Gaby Hawkins RN RN ttb Diana Cooley RN RN [id number] Liane Wilkerson RN RN sls2 Bethanie Hurley, Reg Reg hs2 Alma Ba RN nn1 The chart was reviewed and I authenticate all verbal orders and agree with the evaluation and treatment provided.Corrections: (The following items were deleted from the chart) 01/01 01:16 02 22:39 MRI Brain W/O FOLL BY WITH ordered. EDMS EDMS 01/01 01:23 02 22:39 MRA BRAIN WITH CONTRAST ordered. EDMS EDMS 01/01 06:44 03:06 FACTOR V LEIDEN ordered. EDMS EDMS 06:44 03:06 FACTOR II PROTHROMBIN GENE AN ordered. EDMS EDMS Attachments: 00:54 [facility] Payment Agreement hs2 01/03 08:18 T-Sheet-- Draft Copy lg 08:18 ECG/EKG lg Chart Complete MTDD
--- NOTE | 2017-01-03 14:06 | EDDOCDS ---
Physician Documentation [facility] Name: Jeff Lazcano Age: 61 yrs Sex: Male : 1955 Arrival Date: 12/31/2016 Time: 20:12 Bed Admit Hold Private MD: Apryl Mathis A Disposition: 12/31/16 22:33 Hospitalization ordered by Sunshine Diaz for Inpatient Admission. Preliminary diagnosis is Transient cerebral ischemic attack, unspecified. - Bed requested for PCU. - Status is Inpatient Admission. ttb - Condition is Stable. - Problem is an ongoing problem. - Symptoms are unchanged. Historical: - Allergies: no known allergies; - Home Meds: 1. metformin 500 mg Oral Tb24 4 tabs once daily (Last dose: 12/31/2016 16:30) 2. losartan 100 mg oral tab 1 tab once daily (Last dose: 12/31/2016 08:00) 3. chlorthalidone 25 mg Oral tab 1 tab once daily 4. aspirin 81 mg Oral tab 1 tab once daily 5. Centrum Silver oral tab daily - PMHx: Hypertension; Ulcerative Colitis; Diabetes - NIDDM: controlled; - PSHx: Vasectomy; Colonoscopy; - Social history: Smoking status: Cigars No barriers to communication noted, The patient speaks fluent Swedish. - : The pt / caregiver states he / she is not on anticoagulants. Home medication list is obtained from the patient. - Exposure Risk Screening:: None identified. Vital Signs: 12/31 20:14 BP 159 / 101; Pulse 98; Resp 16; Temp 97.6(O); Pulse Ox 97% on R/A; Weight 119.75 kg / lr2 264 lbs (R); Height 5 ft. 11 in. (180.34 cm); Pain 0/10; 20:21 BP 145 / 87 (auto/); ms18 20:23 Pulse 96 MON; Pulse Ox 96% ; ms18 20:36 BP 137 / 81 (auto/); nn1 20:36 Pulse 86 MON; Pulse Ox 96% ; nn1 20:51 BP 142 / 93 (auto/); nn1 20:51 Pulse 92 MON; Pulse Ox 97% ; nn1 21:00 BP 138 / 88 LA Supine (man/lg); rs6 21:05 Pulse 88 MON; Pulse Ox 96% ; nn1 21:06 BP 122 / 80 (auto/); nn1 21:20 Pulse 92 MON; Pulse Ox 97% ; nn1 21:21 BP 141 / 77 (auto/); nn1 21:35 Pulse 92 MON; Pulse Ox 97% ; nn1 21:36 BP 138 / 75 (auto/); nn1 21:51 BP 125 / 64 (auto/); nn1 21:51 Pulse 88 MON; Pulse Ox 95% ; nn1 22:05 Pulse 86 MON; Pulse Ox 97% ; nn1 22:06 BP 132 / 72 (auto/); nn1 22:20 Pulse 82 MON; Pulse Ox 96% ; nn1 22:21 BP 117 / 69 (auto/); nn1 22:21 Pulse 82 MON; Pulse Ox 95% ; nn1 22:36 BP 122 / 72 (auto/); nn1 22:36 Pulse 82 MON; Pulse Ox 95% ; nn1 22:51 BP 119 / 71 (auto/); nn1 22:51 Pulse 86 MON; Pulse Ox 95% ; nn1 23:06 BP 118 / 70 (auto/); nn1 23:06 Pulse 84 MON; Pulse Ox 95% ; nn1 20:14 Body Mass Index 36.82 (119.75 kg, 180.34 cm) lr2 MDM: 20:30 RN interventions must not delay CT ordered. br1 20:30 Design Lead/Pulse Ox/q 15 min VS ordered. br1 20:30 Accucheck ordered. br1 20:30 IV Saline Lock ordered. br1 20:31 Neuro VS q 15 Minutes ordered. br1 20:31 Rhythm Strip to chart ordered. br1 20:31 Misc. Nursing Order ordered. br1 20:32 Basic Metabolic Profile Ordered. EDMS 20:32 CBC with Diff Ordered. EDMS 20:32 Partial Thromboplastin Time Ordered. EDMS 20:32 Prothrombin Time Profile\E\INR Ordered. EDMS 20:33 Chest, 1 View Ordered. EDMS 20:33 Type & Screen Ordered. EDMS 20:33 CT Head Without Contrast Ordered. EDMS 20:33 ECG WITH READING ER PHYS+CARDIAG ordered. EDMS 21:04 Aspirin 324 mg PO once ordered. ke 21:10 Fingerstick Blood Sugar Ordered. EDMS 22:06 Basic Metabolic Profile Reviewed. ke 22:06 CBC with Diff Reviewed. ke 22:06 Fingerstick Blood Sugar Reviewed. ke 22:06 Partial Thromboplastin Time Reviewed. ke 22:06 Prothrombin Time Profile\E\INR Reviewed. ke 22:06 Type & Screen Reviewed. ke 22:06 CT Head Without Contrast Reviewed. ke 22:20 BED REQUEST+ADM ordered. EDMS 22:42 NO ADDED SALT DIET ordered. EDMS 22:42 CARDIAC RISK PROFILE Ordered. EDMS 22:42 CBC WITH DIFFERENTIAL Ordered. EDMS 22:43 BASIC METABOLIC PROFILE Ordered. EDMS 22:43 THYROID STIMULATING HORMONE Ordered. EDMS 22:43 PHYSICAL THERAPY EVAL & TREAT ordered. EDMS 22:44 Admission / Observation Status ordered. EDMS 23:31 Financial registration complete. hs2 01/01 00:54 [facility] Payment Agreement was scanned into [employer] and attached to record. hs2 01:16 MRI Brain without Contrast Ordered. EDMS 01:23 MRA BRAIN W/O CONTRAST Ordered. EDMS 03:03 ECHOCARD,DOPPLER/COLOR FLOW ordered. EDMS 03:04 Duplex,carotid (complete) Ordered. EDMS 03:06 ANTINUCLEAR ANTIBODIES Ordered. EDMS 03:06 ANTI-CARDIOLIPIN ANTIBODIES Ordered. EDMS 03:06 PROTEIN C ANTIGEN Ordered. EDMS 03:06 ANTI THROMBIN 3 PANEL (AG/AC) Ordered. EDMS 03:06 HOMOCYSTEINE Ordered. EDMS 06:44 FACTOR II PROTHROMBIN GENE AN Ordered. EDMS 06:44 FACTOR V LEIDEN Ordered. EDMS 01/03 08:18 T-Sheet-- Draft Copy was scanned into [employer] and attached to record. lg 08:18 ECG/EKG was scanned into [employer] and attached to record. lg 08:19 Trend VS was scanned into [employer] and attached to record. lg 08:19 Radiology Report was scanned into [employer] and attached to record. Point of Care Testing: Blood Glucose: 12/31 21:15 Blood Glucose: 170 mg/dL; nn1 Ranges: Administered Medications: 21:24 Drug: Aspirin 324 mg [aspirin 81 mg chewable tablet (4 tabs)] Route: PO; nn1 Signatures: Dispatcher [employer] EDMO Dragan Rosa, Yovani Reg lg Salbador Santana, PRINCIPAL NETWORK ARCHITECT PRINCIPAL NETWORK ARCHITECTAngel Iqbal MD MD br1 Gaby Hawkins RN RN ttb Diana Cooley RN RN ms18 Liane Wilkerson RN RN sls2 Bethanie Hurley, Reg Reg hs2 Alma Ba RN nn1 The chart was reviewed and I authenticate all verbal orders and agree with the evaluation and treatment provided.Corrections: (The following items were deleted from the chart) 01/01 01:16 02 22:39 MRI Brain W/O FOLL BY WITH ordered. EDMS EDMS 01/01 01:23 02 22:39 MRA BRAIN WITH CONTRAST ordered. EDMS EDMS 01/01 06:44 03:06 FACTOR V LEIDEN ordered. EDMS EDMS 06:44 03:06 FACTOR II PROTHROMBIN GENE AN ordered. EDMS EDMS Attachments: 00:54 [facility] Payment Agreement hs2 01/03 08:18 T-Sheet-- Draft Copy lg 08:18 ECG/EKG lg Chart Complete MTDD
--- NOTE | 2017-01-03 16:42 | DS.PDOC ---
Discharge Summary General Date of Admission Jan 01, 2017 at 16:51 Date of Discharge Jan 03, 2017 at 11:51 Specialist/Consultants Involve Dr. Vera of neurology Discharge Summary PROCEDURES PERFORMED DURING STAY: None. COMPLICATIONS/CHIEF COMPLAINT: Slurred Speech; Tia ADMISSION DIAGNOSES: 1. .Left Temporal CVA 2. .DM 3. .HTN DISCHARGE DIAGNOSES: 1. .Left Temporal CVA 2. .DM 3. .HTN HISTORY OF PRESENT ILLNESS: 61-year-old male with a history of hypertension, diabetes presented to the ER with a chief complaint of slurred speech and right hand numbness. He states that he had 3 similar episodes of this over the previous 12 days before presenting to the ER. The patient denied any headaches, neck or back pain, or any other focal neurological deficits. In the ER, a CT scan of the head revealed no acute findings. However, a MRI scan of the brain revealed 2 small left temporal lacunar ischemic strokes. The patient was admitted to the hospitalist service for further evaluation and management. During the patient's stay in the hospital here, his neurological symptoms improved back to baseline. A carotid ultrasound was done, and this showed less than 50% of bilateral carotid artery stenosis. An MRA of the brain was within normal limits. Dr. Vera of neurology was consulted for further assistance with management of acute CVA. He has recommended that the patient continue 81 mg of aspirin which he was ready taking as an outpatient, and he has also added Plavix 75 mg to this regimen. He has recommended the patient to continue this regimen for 2 weeks, and follow up with neurology as an outpatient, at which time he plans to discontinue the aspirin. In addition, we did order a hypercoagulable workup here in the hospital, as well as an echocardiogram. These tests have been completed, but have yet to be resulted. The patient will follow-up with Dr. Vera of neurology as an outpatient, who will follow up with these studies with him and make further recommendations. At this time, the patient states that he is feeling back to his normal self, and is very eager to get back home. We will asked that the patient follow-up on these studies with neurology as aforementioned, and his primary care physician within one to 2 weeks. DISCHARGE MEDICATIONS: Please see below. ALLERGIES: Please see below. PHYSICAL EXAMINATION ON DISCHARGE: VITAL SIGNS: Please see below. General Exam: Positive: Alert, Cooperative, No Acute Distress Eye Exam: Positive: EOMI, PERRLA ENT Exam: Positive: Atraumatic, Mucous membr. moist/pink Neck Exam: Negative: JVD Chest Exam: Positive: Clear to auscultation, Normal air movement Heart Exam: Positive: Normal S1, Normal S2, Rate Normal Telemetry: Positive: Sinus Abdomen Exam: Positive: Soft, Negative: Tenderness Extremity Exam: Negative: Swelling, Tenderness Neuro Exam: Positive: Cranial Nerves 3-12 NL, Sensation Intact, Strength at 5/ 5 X4 ext LABORATORY DATA: Please see below. IMAGING: His MRI scan of brain was reviewed and showed two small left temporal lacunar ischemic strokes. Carotid ultrasound showed less than 50% bilateral carotid artery stenosis. MRA of the brain was within normal limits. VTE Prophylaxis ordered?: Yes DISCHARGE CONDITION: Stable. DISPOSITION: .Home ACTIVITY: .As Tolerated DIET: .Carb Cons Diet DISCHARGE PLAN AND INSTRUCTIONS: 1. . Follow with primary care physician within one week 2. . Follow-up with neurology outpatient within 2 weeks 3. . Follow-up with aforementioned hypercoagulable studies, and echocardiogram results with primary care physician, Dr. Vera of neurology as outpatient TIME SPENT ON DISCHARGE: Greater than 30 minutes. Vital Signs/I&Os Vital Signs Date Time Temp Pulse Resp B/P Pulse Ox O2 Delivery O2 Flow Rate FiO2 01/03/17 08:02 134/78 01/03/17 08:00 Room Air 01/03/17 08:00 97.1 84 18 95 I&O- Last 24 Hours up to 6 AM 01/03/17 06:00 Intake Total 1620 ml Output Total 2200 ml Balance -580 ml Laboratory Data Labs 24H Laboratory Tests 2 01/02/17 17:05: Bedside Glucose (Misc Panel) 114 01/02/17 21:43: Bedside Glucose (Misc Panel) 200H 01/03/17 06:51: Bedside Glucose (Misc Panel) 175H FSBS Laboratory Tests Test 01/02/17 17:05 01/02/17 21:43 01/03/17 06:51 Range/Units Bedside Glucose (Misc Panel) 114 200 175 80-115 MG/DL Medications Scheduled Aspirin (Aspirin) 81 Mg Tab 81 MG PO DAILY (Reported) Atorvastatin Calcium (Atorvastatin Calcium) 20 Mg Tab 40 MG PO DAILY Chlorthalidone (Chlorthalidone) 25 Mg Tab 25 MG PO DAILY (Reported) Clopidogrel Bisulfate (Clopidogrel) 75 Mg Tab 75 MG PO DAILY Losartan Potassium (Losartan Potassium) 100 Mg Tab 100 MG PO DAILY (Reported) Metformin Hydrochloride (Metformin HCl ER) 500 Mg Tab 2,000 MG PO ACS (Reported ) Multivitamins *[facility] STOCKED* (Thera M Plus *[facility] STOCKED*) 1 Tab Tab 1 TAB PO DAILY (Reported) Allergies Coded Allergies: No Known Allergies (Unverified , 12/31/16) BOAZ CAMPOS MD Jan 03, 2017 16:42
--- NOTE | 2017-01-04 07:24 | ECHO ---
DATE OF PROCEDURE: 01/01/2017 REFERRING PHYSICIAN: Sunshine Diaz MD PATIENT LOCATION: Room 3229 REASON FOR ECHOCARDIOGRAM: CVA. 2D MEASUREMENTS: IVS: 1.3 cm LV: 4.1 cm LVPW: 1.3 cm LA: 3.9 cm Aorta: 3.3 cm IVC: 2.0 cm DOPPLER MEASUREMENTS: Peak velocity across the aortic valve: 1.5 m/s Peak velocity across the LVOT: 1.2 m/s Mitral E: 0.74, Mitral A: 0.69, with a ratio of 1.1 2D COMMENTS: 1. Normal left ventricular size with mildly increased left ventricular wall thickness. Left ventricular systolic function is normal, estimated at 60 to 65%. 2. Borderline enlarged left atrium. Normal right atrium and right ventricle. 3. The atrial septum appeared to be normal without evidence of defect or shunt. 4. Normal aortic root. 5. No pericardial effusion seen. 6. The aortic valve, mitral valve, tricuspid valve, and pulmonic valve appeared to be normal. The proximal pulmonary artery branches were not well visualized. 7. The inferior vena cava was borderline enlarged. DOPPLER: It detects no significant valvular abnormalities. Abnormal relaxation pattern was noted across the septal and lateral mitral valve annulus consistent with a pseudonormal pattern, left ventricular end-diastolic pressure might be elevated. IMPRESSION: 1. Normal global left ventricular systolic function. There are some features of left ventricular diastolic dysfunction as mentioned above. 2. Isolated borderline enlarged inferior vena cava/IVC. 3. No significant valvular abnormalities. 4. The study was technically mildly limited due to poor acoustic window.
[2017-01-07 00:06] LABS: PROTEIN S ANTIGEN FREE 85 % (57-157); PROTEIN S ANTIGEN TOTAL 115 % (60-150)
== END 2017-01-03 11:51 | disposition home or self-care (01) | DRG 66 ==
LOC: M ED 20:12 → M ED INP 22:38 → M PCU 01-01 12:30 → OBSVTOIN 01-01 16:51
PROVIDERS: ADMIT General Practice; ATTEND Internal Medicine
DX: I63.9 Cerebral infarction, unspecified (principal); I10 Essential (primary) hypertension; E11.9 Type 2 diabetes mellitus without complications; R20.0 Anesthesia of skin; E87.6 Hypokalemia; E66.9 Obesity, unspecified; R47.81 Slurred speech; F17.290 Nicotine dependence, other tobacco product, uncomplicated; I65.23 Occlusion and stenosis of bilateral carotid arteries; G47.33 Obstructive sleep apnea (adult) (pediatric); Z68.36 Body mass index [BMI] 36.0-36.9, adult; Z79.84 Long term (current) use of oral hypoglycemic drugs; Z79.82 Long term (current) use of aspirin; Z79.899 Other long term (current) drug therapy; Z82.49 Family history of ischemic heart disease and other diseases of the circulatory system

== ENCOUNTER → 2017-01-29 | Outpatient (CLI) | payer OTHER ==
[~2017-01-29] MED LIST: ASPI81TA7 PO; ATOR1TAB21 PO; CHLO25TA PO; CLOP75TA2 PO; LOSA100T36 PO; METF-414 PO; VITMTA PO
[2017-01-29 10:09] LABS: MEAN CORPUSCULAR HEMOGLOBIN 28.9 pg (27.0-33.0); MEAN CORPUSCULAR HGB CONC 34.5 g/dl (32.0-36.5); MEAN CORPUSCULAR VOLUME 83.7 fl (80.0-96.0); RED CELL DISTRIBUTION WIDTH 12.9 % (11.5-14.5); WHITE BLOOD COUNT 7.6 K/mm3 (4.0-10.0)
[2017-01-29 10:37] LABS: ALBUMIN 3.9 GM/DL (3.2-5.2); ALBUMIN/GLOBULIN RATIO 1.39 (1.00-1.93); ALKALINE PHOSPHATASE 77 U/L (45-117); ALT/SGPT 26 U/L (12-78); ANION GAP 10 MEQ/L (8-16); AST/SGOT 17 U/L (15-37); BILIRUBIN,TOTAL 0.6 MG/DL (0.2-1.0); BLOOD UREA NITROGEN 19 MG/DL (7-18); CALCIUM LEVEL 8.8 MG/DL (8.8-10.2); CARBON DIOXIDE LEVEL 29 MEQ/L (21-32); CHLORIDE LEVEL 101 MEQ/L (98-107); CHOLESTEROL LEVEL 124 MG/DL (<200); CREATININE FOR GFR 1.05 MG/DL (0.70-1.30); GLOMERULAR FILTRATION RATE > 60.0 (>49); GLUCOSE, FASTING 161 MG/DL (80-110); POTASSIUM SERUM 3.4 MEQ/L (3.5-5.1); SODIUM LEVEL 140 MEQ/L (136-145); TOTAL PROTEIN 6.7 GM/DL (6.4-8.2); TRIGLYCERIDES LEVEL 118 MG/DL (<150)
[2017-01-29 11:56] LABS: BASOPHILS 1 % (0-4)
== END ==
LOC: M LAB 09:43
PROVIDERS: ATTEND Family Medicine
DX: E11.65 Type 2 diabetes mellitus with hyperglycemia (principal)

== ENCOUNTER → 2017-05-01 | Outpatient (CLI) | payer OTHER ==
[2017-05-01 11:28] LABS: BASO # 0.1 K/mm3 (0.0-0.2); EOS # 0.1 K/mm3 (0.0-0.50); EOS % 1.9 % (0.0-3.0); LARGE UNSTAINED CELL # 0.1 K/mm3 (0.0-0.4); LARGE UNSTAINED CELL % 1.9 % (0.0-4.0); LYMPH # 2.6 K/mm3 (1.5-4.5); LYMPH % 37.6 % (24.0-44.0); MEAN CORPUSCULAR HEMOGLOBIN 30.2 pg (27.0-33.0); MEAN CORPUSCULAR HGB CONC 35.1 g/dl (32.0-36.5); MEAN CORPUSCULAR VOLUME 86.2 fl (80.0-96.0); MONO # 0.4 K/mm3 (0.0-0.8); MONO % 5.1 % (0.0-5.0); NEUTROPHILS # 3.6 K/mm3 (1.8-7.7); NEUTROPHILS % 52.5 % (36.0-66.0); PLATELET COUNT, AUTOMATED 207 k/mm3 (150-450); RED CELL DISTRIBUTION WIDTH 13.2 % (11.5-14.5); WHITE BLOOD COUNT 6.9 K/mm3 (4.0-10.0)
[2017-05-01 12:00] LABS: ALBUMIN 3.9 GM/DL (3.2-5.2); ALBUMIN/GLOBULIN RATIO 1.26 (1.00-1.93); ALKALINE PHOSPHATASE 74 U/L (45-117); ALT/SGPT 27 U/L (12-78); ANION GAP 8 MEQ/L (8-16); AST/SGOT 14 U/L (15-37); BLOOD UREA NITROGEN 18 MG/DL (7-18); CALCIUM LEVEL 9.3 MG/DL (8.8-10.2); CARBON DIOXIDE LEVEL 32 MEQ/L (21-32); CHLORIDE LEVEL 101 MEQ/L (98-107); CHOLESTEROL LEVEL 116 MG/DL (<200); CREATININE FOR GFR 0.86 MG/DL (0.70-1.30); GLOMERULAR FILTRATION RATE > 60.0 (>49); GLUCOSE, FASTING 151 MG/DL (80-110); POTASSIUM SERUM 3.3 MEQ/L (3.5-5.1); SODIUM LEVEL 141 MEQ/L (136-145); TRIGLYCERIDES LEVEL 123 MG/DL (<150)
== END ==
LOC: M LAB 10:36
PROVIDERS: ATTEND Family Medicine
DX: E11.65 Type 2 diabetes mellitus with hyperglycemia (principal)

== ENCOUNTER → 2017-08-28 | Outpatient (CLI) | payer OTHER ==
[~2017-08-28] MED LIST changes: +ASPI1TAB15 PO; -ASPI81TA7 PO
[2017-08-28 10:20] LABS: ALBUMIN 3.6 GM/DL (3.2-5.2); ALBUMIN/GLOBULIN RATIO 1.33 (1.00-1.93); ALKALINE PHOSPHATASE 65 U/L (45-117); ALT/SGPT 42 U/L (12-78); ANION GAP 9 MEQ/L (8-16); AST/SGOT 25 U/L (15-37); BILIRUBIN,TOTAL 0.6 MG/DL (0.2-1.0); BLOOD UREA NITROGEN 13 MG/DL (7-18); CALCIUM LEVEL 8.4 MG/DL (8.8-10.2); CARBON DIOXIDE LEVEL 27 MEQ/L (21-32); CHLORIDE LEVEL 103 MEQ/L (98-107); CREATININE FOR GFR 0.82 MG/DL (0.70-1.30); GLOMERULAR FILTRATION RATE > 60.0 (>49); GLUCOSE, FASTING 196 MG/DL (80-110); POTASSIUM SERUM 3.5 MEQ/L (3.5-5.1); SODIUM LEVEL 139 MEQ/L (136-145); TOTAL PROTEIN 6.3 GM/DL (6.4-8.2)
== END ==
LOC: M LAB 08:35
PROVIDERS: ATTEND Family Medicine
DX: E11.65 Type 2 diabetes mellitus with hyperglycemia (principal)

== ENCOUNTER → 2018-03-31 | Outpatient (CLI) | payer OTHER ==
[2018-03-31 10:42] LABS: ALBUMIN 3.8 GM/DL (3.2-5.2); ALBUMIN/GLOBULIN RATIO 1.23 (1.00-1.93); ALKALINE PHOSPHATASE 78 U/L (45-117); ALT/SGPT 35 U/L (12-78); ANION GAP 7 MEQ/L (8-16); AST/SGOT 16 U/L (7-37); BILIRUBIN,TOTAL 0.6 MG/DL (0.2-1.0); BLOOD UREA NITROGEN 14 MG/DL (7-18); CALCIUM LEVEL 8.9 MG/DL (8.8-10.2); CARBON DIOXIDE LEVEL 32 MEQ/L (21-32); CHLORIDE LEVEL 103 MEQ/L (98-107); GLOMERULAR FILTRATION RATE > 60.0 (>49); GLUCOSE, FASTING 193 MG/DL (70-100); POTASSIUM SERUM 3.7 MEQ/L (3.5-5.1); SODIUM LEVEL 142 MEQ/L (136-145); TOTAL PROTEIN 6.9 GM/DL (6.4-8.2)
[2018-03-31 11:21] LABS: ESTIMATED AVERAGE GLUCOSE 177 MG/DL (60-110); HEMOGLOBIN A1c 7.8 %
== END ==
LOC: M LAB 09:06
DX: E11.69 Type 2 diabetes mellitus with other specified complication (principal)

== ENCOUNTER → 2018-07-02 | Outpatient (CLI) | payer OTHER ==
[2018-07-02 10:57] LABS: BASO % 0.5 % (0.0-1.0); EOS # 0.1 10^3/uL (0.0-0.50); EOS % 1.2 % (0.0-3.0); HEMATOCRIT 47.3 % (42.0-52.0); HEMOGLOBIN 16.7 g/dl (13.5-17.5); IMMATURE GRANULOCYTE % 0.4 % (0-3.0); LYMPH # 2.4 10^3/uL (1.5-4.5); LYMPH % 31.2 % (24.0-44.0); MEAN CORPUSCULAR HEMOGLOBIN 30.4 pg (27.0-33.0); MEAN CORPUSCULAR HGB CONC 35.3 g/dl (32.0-36.5); MEAN CORPUSCULAR VOLUME 86.2 fl (80.0-96.0); MONO # 0.5 10^3/uL (0.0-0.8); MONO % 6.6 % (0.0-5.0); NEUTROPHILS # 4.6 10^3/uL (1.8-7.7); NEUTROPHILS % 60.1 % (36.0-66.0); PLATELET COUNT, AUTOMATED 226 10^3/uL (150-450); RED BLOOD COUNT 5.49 10^6/uL (4.30-6.10); RED CELL DISTRIBUTION WIDTH 13.9 % (11.5-14.5); WHITE BLOOD COUNT 7.7 10^3/uL (4.0-10.0)
[2018-07-02 11:15] LABS: ESTIMATED AVERAGE GLUCOSE 166 MG/DL (60-110); HEMOGLOBIN A1c 7.4 %
[2018-07-02 11:24] LABS: ALBUMIN 3.9 GM/DL (3.2-5.2); ALBUMIN/GLOBULIN RATIO 1.22 (1.00-1.93); ALKALINE PHOSPHATASE 86 U/L (45-117); ALT/SGPT 25 U/L (12-78); ANION GAP 7 MEQ/L (8-16); AST/SGOT 13 U/L (7-37); BILIRUBIN,TOTAL 0.6 MG/DL (0.2-1.0); BLOOD UREA NITROGEN 17 MG/DL (7-18); CALCIUM LEVEL 9.1 MG/DL (8.8-10.2); CARBON DIOXIDE LEVEL 34 MEQ/L (21-32); CHLORIDE LEVEL 101 MEQ/L (98-107); CHOLESTEROL LEVEL 99 MG/DL (<200); CREATININE FOR GFR 1.03 MG/DL (0.70-1.30); GLOMERULAR FILTRATION RATE > 60.0 (>49); GLUCOSE, FASTING 134 MG/DL (70-100); HDL CHOLESTEROL 33 MG/DL (>40); LDL CHOLESTEROL 27.4 MG/DL (<100); NON-HDL-C 66 MG/DL; POTASSIUM SERUM 3.9 MEQ/L (3.5-5.1); SODIUM LEVEL 142 MEQ/L (136-145); TOTAL PROTEIN 7.1 GM/DL (6.4-8.2); TRIGLYCERIDES LEVEL 193 MG/DL (<150)
[2018-07-02 11:33] LABS: CREATININE, URINE 56.3 MG/DL; MALB URINE SIEMENS < 5.0 MG/L; MAU/CREAT RATIO 8.8 MCG/MG (0.0-30.0)
== END ==
LOC: M LAB 09:59
DX: E11.69 Type 2 diabetes mellitus with other specified complication (principal)
CPT/HCPCS: 80053

== ENCOUNTER → 2018-10-05 | Outpatient (CLI) | payer OTHER ==
[2018-10-05 13:23] LABS: ALBUMIN/GLOBULIN RATIO 1.21 (1.00-1.93); ALKALINE PHOSPHATASE 85 U/L (45-117); ALT/SGPT 23 U/L (12-78); ANION GAP 10 MEQ/L (8-16); AST/SGOT 13 U/L (7-37); BILIRUBIN,TOTAL 0.5 MG/DL (0.2-1.0); BLOOD UREA NITROGEN 17 MG/DL (7-18); CALCIUM LEVEL 9.7 MG/DL (8.8-10.2); CARBON DIOXIDE LEVEL 30 MEQ/L (21-32); CHLORIDE LEVEL 99 MEQ/L (98-107); CREATININE FOR GFR 0.83 MG/DL (0.70-1.30); GLOMERULAR FILTRATION RATE > 60.0 (>49); GLUCOSE, FASTING 126 MG/DL (70-100); POTASSIUM SERUM 3.2 MEQ/L (3.5-5.1); SODIUM LEVEL 139 MEQ/L (136-145); TOTAL PROTEIN 7.3 GM/DL (6.4-8.2)
[2018-10-05 14:16] LABS: ESTIMATED AVERAGE GLUCOSE 151 MG/DL (60-110); HEMOGLOBIN A1c 6.9 %
== END ==
LOC: M LAB 11:44
DX: E11.69 Type 2 diabetes mellitus with other specified complication (principal)
CPT/HCPCS: 80053

== ENCOUNTER → 2019-01-06 | Outpatient (REF) | payer OTHER ==
[~2019-01-06] MED LIST changes: -LOSA100T36 PO; +LOSA100T50 PO
== END ==
LOC: M SFHCPLAZ 17:26
PROVIDERS: ATTEND Dermatology
DX: L57.0 Actinic keratosis (principal)
CPT/HCPCS: 11102; 88305; G0463

== ENCOUNTER → 2019-04-03 | Outpatient (CLI) | payer OTHER ==
[2019-04-03 08:45] LABS: BASO # 0.1 10^3/uL (0.0-0.2); BASO % 0.6 % (0.0-1.0); EOS # 0.1 10^3/uL (0.0-0.50); EOS % 0.6 % (0.0-3.0); HEMATOCRIT 47.2 % (42.0-52.0); HEMOGLOBIN 16.7 g/dl (13.5-17.5); LYMPH # 2.2 10^3/uL (1.5-4.5); LYMPH % 27.4 % (24.0-44.0); MEAN CORPUSCULAR HEMOGLOBIN 30.5 pg (27.0-33.0); MEAN CORPUSCULAR HGB CONC 35.4 g/dl (32.0-36.5); MEAN CORPUSCULAR VOLUME 86.3 fl (80.0-96.0); MONO # 0.6 10^3/uL (0.0-0.8); MONO % 7.1 % (0.0-5.0); NEUTROPHILS % 63.9 % (36.0-66.0); PLATELET COUNT, AUTOMATED 196 10^3/uL (150-450); RED BLOOD COUNT 5.47 10^6/uL (4.30-6.10); WHITE BLOOD COUNT 7.9 10^3/uL (4.0-10.0)
[2019-04-03 09:07] LABS: HEMOGLOBIN A1c 8.2 %
[2019-04-03 09:18] LABS: ALT/SGPT 27 U/L (12-78); BLOOD UREA NITROGEN 14 MG/DL (7-18); CALCIUM LEVEL 9.1 MG/DL (8.8-10.2); CARBON DIOXIDE LEVEL 29 MEQ/L (21-32); CHLORIDE LEVEL 101 MEQ/L (98-107); CHOLESTEROL LEVEL 108 MG/DL (<200); CHOLESTEROL RISK RATIO 3.085 (<5); GLOMERULAR FILTRATION RATE > 60.0 (>49); GLUCOSE, FASTING 206 MG/DL (70-100); HDL CHOLESTEROL 35 MG/DL (>40); LDL CHOLESTEROL 47 MG/DL (<100); NON-HDL-C 73 MG/DL; SODIUM LEVEL 138 MEQ/L (136-145); TOTAL PROTEIN 6.7 GM/DL (6.4-8.2); TRIGLYCERIDES LEVEL 131 MG/DL (<150)
[2019-04-03 09:26] LABS: CREATININE, URINE 94.3 MG/DL; MALB URINE SIEMENS 28.3 MG/L
== END ==
LOC: M LAB 08:05
PROVIDERS: ATTEND Family Medicine
DX: E11.69 Type 2 diabetes mellitus with other specified complication (principal)

== ENCOUNTER → 2019-11-01 | Outpatient (CLI) | payer OTHER ==
[2019-11-01 08:46] LABS: BASO # 0.1 10^3/uL (0.0-0.2); BASO % 0.8 % (0.0-1.0); EOS # 0.2 10^3/uL (0.0-0.5); EOS % 2.7 % (0.0-3.0); HEMOGLOBIN 16.2 g/dl (13.5-17.5); LYMPH # 2.3 10^3/uL (1.5-5.0); LYMPH % 35.2 % (24.0-44.0); MEAN CORPUSCULAR HEMOGLOBIN 29.6 pg (27.0-33.0); MEAN CORPUSCULAR HGB CONC 34.5 g/dl (32.0-36.5); MEAN CORPUSCULAR VOLUME 85.8 fl (80.0-96.0); MONO # 0.5 10^3/uL (0.0-0.8); MONO % 7.4 % (0.0-5.0); NEUTROPHILS # 3.5 10^3/uL (1.5-8.5); NEUTROPHILS % 53.3 % (36.0-66.0); PLATELET COUNT, AUTOMATED 208 10^3/uL (150-450); RED BLOOD COUNT 5.48 10^6/uL (4.30-6.10); WHITE BLOOD COUNT 6.6 10^3/uL (4.0-10.0)
[2019-11-01 09:06] LABS: ALBUMIN 3.6 GM/DL (3.2-5.2); ALT/SGPT 16 U/L (12-78); BILIRUBIN,TOTAL 0.5 MG/DL (0.2-1.0); BLOOD UREA NITROGEN 17 MG/DL (7-18); CALCIUM LEVEL 9.1 MG/DL (8.8-10.2); CARBON DIOXIDE LEVEL 29 MEQ/L (21-32); CHLORIDE LEVEL 104 MEQ/L (98-107); CHOLESTEROL LEVEL 125 MG/DL (<200); CHOLESTEROL RISK RATIO 4.032 (<5); CREATININE FOR GFR 0.92 MG/DL (0.70-1.30); GLOMERULAR FILTRATION RATE > 60.0 (>49); GLUCOSE, FASTING 221 MG/DL (70-100); HDL CHOLESTEROL 31 MG/DL (>40); LDL CHOLESTEROL 76 MG/DL (<100); NON-HDL-C 94 MG/DL; POTASSIUM SERUM 3.6 MEQ/L (3.5-5.1); SODIUM LEVEL 140 MEQ/L (136-145); TOTAL PROTEIN 6.9 GM/DL (6.4-8.2); TRIGLYCERIDES LEVEL 90 MG/DL (<150)
[2019-11-01 09:15] LABS: CREATININE, URINE 80.6 MG/DL; MAU/CREAT RATIO 13.6 MCG/MG (0.0-30.0)
[2019-11-01 10:09] LABS: HEMOGLOBIN A1c 7.6 %
== END ==
LOC: M LAB 08:08
PROVIDERS: ATTEND Family Medicine
DX: Z00.00 Encounter for general adult medical examination without abnormal findings (principal); I10 Essential (primary) hypertension; E78.2 Mixed hyperlipidemia